=== PATIENT | male | born 1980 | race Caucasian/White ===

== ENCOUNTER → 2018-01-22 15:55 | Outpatient (CLI) | payer MEDICAID, SELFPAY ==
--- NOTE | 2018-01-22 15:58 | XR_ITS ---
EXAM: XR lumbar spine min 4V HISTORY: ITS.REASON: Back Pain ORDERING PHYSICIAN: Kendall Egan MD PATIENT AGE: 37 years COMPARISON: FINDINGS: Normal alignment. No fracture or dislocation. No lytic or blastic change. No significant degenerative change. The disc spaces are preserved. Calcification in pre-vertebral region at L4-L5 consistent with with calcification within the aorta IMPRESSION: 1. Negative lumbar spine. 2. Atheromatous calcification of the aorta
--- NOTE | 2018-01-22 15:58 | XR_ITS ---
EXAM: XR thoracic spine 3V HISTORY: ITS.REASON: Midback Pain FINDINGS: Normal alignment. No fracture or dislocation. No lytic or blastic change. No significant degenerative change. The disc spaces are preserved. Minimal thoracic curvature convex right IMPRESSION: No acute finding, minimal dextroscoliosis of the thoracic spine
== END ==
PROVIDERS: PCP Emergency Medicine; Visit Provider Emergency Medicine
DX: M54.9 Dorsalgia, unspecified (principal); M54.6 Pain in thoracic spine; M54.5 Low back pain
CPT/HCPCS: 72072; 72110

== ENCOUNTER → 2018-05-14 08:19 | Outpatient (CLI) | payer MEDICAID, SELFPAY ==
[2018-05-14 08:32] LABS: Basophils % 0.3 % (0.1-2.0); Eosinophils # 0.2 K/mm3 (0.0-0.4); Eosinophils % 2.4 % (0.1-12.0); Hematocrit 47.9 % (42.0-52.0); Lymphocytes # 2.2 K/mm3 (0.7-4.5); Lymphocytes % 24.5 K/mm3 (10-50); Mean Corpuscular HGB Conc 33.4 g/dL (31.8-35.4); Mean Corpuscular Volume 89.8 fl (80-94); Mean Platelet Volume 7.7 fl (7.4-10.4); Monocytes # 0.4 K/mm3 (0.1-1.0); Monocytes % 3.9 % (1.7-9.3); Neutrophils # 6.2 K/mm3 (1.8-7.8); Neutrophils % 68.9 % (37.0-80.0); Platelet Count 282 K/mm3 (142-424); Red Blood Count 5.34 M/mm3 (4.60-6.20); Red Cell Distribution Width 13.7 % (11.5-17.5)
[2018-05-14 10:26] LABS: Alanine Aminotransferase 24 U/L (12-78); Albumin Level 4.1 gm/dL (3.4-5.0); Albumin/Globulin Ratio 1.3 (1.1-1.8); Alkaline Phosphatase 91 U/L (46-116); Anion Gap 9.3 mEq/L (5-15); Aspartate Amino Transferase 7 U/L (15-37); Bilirubin,Total 0.3 mg/dL (0.2-1.0); Blood Urea Nitrogen 15 mg/dL (7-18); Carbon Dioxide 29 mmol/L (21.0-32.0); Chloride 107 mmol/L (98-107); Chol/HDL Ratio 3.9 (1-3.5); Cholesterol 221 mg/dL (140-200); Creatinine,Serum 0.91 mg/dL (0.70-1.30); Estimated Glomerular Filt Rate 93 ml/min (>60); GFR (African American) 113 ML/MIN (>60); Globulin 3.2 gm/dl (1.3-3.2); Glucose 96 mg/dL (74-106); HDL Cholesterol 56 mg/dL (27-67); LDL Cholesterol 146 mg/dL (0-130); Potassium 4.3 mmoL/L (3.5-5.1); Sodium 141 mmol/L (136-145); T4 (Thyroxine) 6.6 ug/dl (4.7-13.3); Thyroid Stimulating Hormone 0.23 uIU/ml (0.358-3.740); Total Protein,Serum 7.3 gm/dL (6.4-8.2); Triglycerides 94 mg/dL (30-200); VLDL Cholesterol 19 mg/dL (0-40)
== END ==
PROVIDERS: Visit Provider Physician Assistant
DX: Z13.0 Encounter for screening for diseases of the blood and blood-forming organs and certain disorders involving the immune mechanism (principal); Z13.29 Encounter for screening for other suspected endocrine disorder; I70.0 Atherosclerosis of aorta; R53.83 Other fatigue
CPT/HCPCS: 36415; 80053; 80061; 84436; 84443; 85025

== ENCOUNTER → 2018-11-13 14:51 | Outpatient (CLI) | payer MEDICAID, SELFPAY ==
--- NOTE | 2018-11-13 14:56 | XR_ITS ---
EXAM: XR lumbar spine min 4V HISTORY: ITS.REASON: back pain ORDERING PHYSICIAN: Irene Sarabia PATIENT AGE: 37 years COMPARISON: None FINDINGS: Normal alignment. No fracture or dislocation. No lytic or blastic change. No significant degenerative change. The disc spaces are preserved. IMPRESSION: Negative lumbar spine
== END ==
PROVIDERS: PCP Emergency Medicine; Visit Provider Nurse Practitioner Family
DX: M54.9 Dorsalgia, unspecified (principal)
CPT/HCPCS: 72110

== ENCOUNTER → 2019-09-10 13:42 | Outpatient (CLI) | payer OTHER, SELFPAY ==
[2019-09-10 15:05] LABS: Alanine Aminotransferase 21 U/L (12-78); Albumin Level 4.4 gm/dL (3.4-5.0); Alkaline Phosphatase 74 U/L (46-116); Aspartate Amino Transferase 14 U/L (15-37); Bilirubin,Direct 0.1 mg/dL (0.0-0.2); Bilirubin,Indirect 0.6 mg/dL (0.0-0.9); Bilirubin,Total 0.7 mg/dL (0.2-1.0); Lipase 156 u/L (73-393); Total Protein,Serum 7.6 gm/dL (6.4-8.2)
== END ==
PROVIDERS: Visit Provider Emergency Medicine
DX: R10.11 Right upper quadrant pain (principal)
CPT/HCPCS: 80076; 83690

== ENCOUNTER → 2019-09-16 08:06 | Outpatient (CLI) | payer OTHER, SELFPAY ==
--- NOTE | 2019-09-16 08:11 | US_ITS ---
PROCEDURE: US GALLBLADDER CLINICAL INDICATION: RUQ abdominal pain COMPARISON: No exams were available for comparison FINDINGS: Pancreas: Unremarkable/Not well seen Liver: Unremarkable. There is appropriate direction of blood flow within a non dilated portal vein. Right kidney: Unremarkable appearing. No hydronephrosis. Gallbladder: No gallstones, pericholecystic fluid, or biliary dilatation. Gallbladder wall is slightly thickened at 3 mm. IMPRESSION: Mildly thickened gallbladder wall otherwise negative right quadrant ultrasound Dictated by: Maximino Perez MD 09/16/2019 14:44 Electronically signed by Maximino Perez MD in [place] 09/16/2019 14:44
== END ==
PROVIDERS: PCP Emergency Medicine; Visit Provider Emergency Medicine
DX: R10.11 Right upper quadrant pain (principal)
CPT/HCPCS: 76705

== ENCOUNTER → 2019-09-27 10:32 | Outpatient (CLI) | payer OTHER, SELFPAY ==
--- NOTE | 2019-09-27 10:32 | NM_ITS ---
PROCEDURE: NM HEPATOBILIARY W PHARM CLINICAL INDICATION: Stomach pain Right upper quadrant pain, thickened gallbladder on ultrasound COMPARISON: No exams were available for comparison TECHNIQUE: DOSE: 8.1 mCi technetium Choletec and 1.9 mcg of CCK FINDINGS: Homogeneous activity is present within the hepatic parenchyma. Activity is present in the gallbladder by 15 minutes. Activity is present in the small bowel by 45 minutes. The gallbladder ejection fraction is calculated to be 98 percent. There was mild pain reported with CCK infusion. IMPRESSION: No evidence of common or cystic duct obstruction. Normal gallbladder ejection fraction Dictated by: Maximino Perez MD 09/28/2019 17:17 Electronically signed by Maximino Perez MD in [place] 09/28/2019 17:17
--- NOTE | 2019-09-27 10:46 | HMH.ITSHM ---
Current Home Medications as stated by this patient Jorge Luis Luevano or territory service representative. []DYCYCLOMINE
== END ==
PROVIDERS: PCP Emergency Medicine; Visit Provider Emergency Medicine
DX: R93.2 Abnormal findings on diagnostic imaging of liver and biliary tract (principal)
CPT/HCPCS: 78227; A9537; J2805

== ENCOUNTER → 2019-10-03 11:02 | Outpatient (CLI) | payer OTHER, SELFPAY ==
[2019-10-03 11:31] LABS: Basophils % 0.6 % (0.1-2.0); Eosinophils # 0.1 K/mm3 (0.0-0.4); Eosinophils % 1.1 % (0.1-12.0); Hematocrit 46.4 % (42.0-52.0); Hemoglobin 15.2 g/dL (14.1-18.0); Lymphocytes # 1.7 K/mm3 (0.7-4.5); Lymphocytes % 27.7 % (10-50); Mean Corpuscular HGB Conc 32.7 g/dL (31.8-35.4); Mean Corpuscular Hemoglobin 30.2 pg (27.0-31.2); Mean Corpuscular Volume 92.4 fl (80-94); Mean Platelet Volume 8.1 fl (7.4-10.4); Monocytes # 0.4 K/mm3 (0.1-1.0); Monocytes % 5.7 % (1.7-9.3); Neutrophils # 4.1 K/mm3 (1.8-7.8); Neutrophils % 64.9 % (37.0-80.0); Platelet Count 260 K/mm3 (142-424); Red Blood Count 5.03 M/mm3 (4.60-6.20); Red Cell Distribution Width 13.2 % (11.5-17.5); White Blood Count 6.3 K/mm3 (4.8-10.8)
[2019-10-03 14:56] LABS: Alanine Aminotransferase 17 U/L (12-78); Albumin Level 4.1 gm/dL (3.4-5.0); Albumin/Globulin Ratio 1.4 (1.1-1.8); Alkaline Phosphatase 70 U/L (46-116); Anion Gap 13.4 mEq/L (5-15); Bilirubin,Total 0.6 mg/dL (0.2-1.0); Blood Urea Nitrogen 8 mg/dL (7-18); Calcium 8.8 mg/dL (8.5-10.1); Carbon Dioxide 29 mmol/L (21.0-32.0); Chloride 104 mmol/L (98-107); Creatinine,Serum 0.79 mg/dL (0.70-1.30); Estimated Glomerular Filt Rate 109 ml/min (>60); GFR (African American) 132 ML/MIN (>60); Globulin 2.9 gm/dl (1.3-3.2); Glucose 97 mg/dL (74-106); Sodium 142 mmol/L (136-145)
[2019-10-03 14:58] LABS: Aspartate Amino Transferase 9 U/L (15-37); Potassium 4.4 mmoL/L (3.5-5.1)
== END ==
PROVIDERS: Visit Provider Surgery
DX: K80.20 Calculus of gallbladder without cholecystitis without obstruction (principal)
CPT/HCPCS: 36415; 80053; 85025

== ENCOUNTER 2020-06-24 14:52 | Emergency (ER) | payer OTHER, SELFPAY ==
[2020-06-24 15:30] VITALS: BP 116/90; PULSE 89; RESP 20; TEMP 36.6; O2SAT 99; BMI 30.7
--- NOTE | 2020-06-24 15:33 | HMH.EDUTC ---
[facility] [place] Disposition Clinical Impression: Exposure to COVID-19 virus Upper respiratory infection Qualifiers: URI type: unspecified URI Qualified Code(s): J06.9 - Acute upper respiratory infection, unspecified Low back pain Qualifiers: Chronicity: acute Back pain laterality: bilateral Sciatica presence: with sciatica Sciatica laterality: bilateral sciatica Qualified Code(s): M54.42 - Lumbago with sciatica, left side Disposition: Home, Self-Care Condition on Discharge: Good Instructions: DI for Low Back Pain Additional Instructions: Go home and rest. No heavy lifting. No twisting for the next 2 days. Take the oral medications as directed. The muscle relaxer (robaxin) will make you drowsy, so don't drive or operate heavy machinery after taking it. Follow up with your regular doctor. GO TO THE ER FOR ANY WORSENING SYMPTOMS OR CONCERN, ESPECIALLY BOWEL OR BLADDER ISSUES, SADDLE AREA NUMBNESS, FEVER, ETC Prescriptions: Ibuprofen [Ibuprofen 600mg Tablet] 600 mg PO Q6HP PRN #30 tab PRN Reason: Mild Pain Transmission Status: Received by [id number] Methocarbamol [Robaxin 500mg Tab] 500 mg PO BIDP PRN #30 tab PRN Reason: Muscle Spasm Transmission Status: Received by [id number] Referrals: Kendall Egan MD [Primary Care Provider] - Forms: Work/School Release Time of Disposition: 15:44 Medical Decision Making - Medical Records Medical records reviewed: No: I reviewed the patient's medical records. - Anant Inquiry Pt receiving controlled substance: No Vital Signs: 06/24/20 15:30 06/24/20 15:42 Temperature 97.9 F 97.9 F Temperature Source Oral Pulse Rate 89 Pulse Rate [Left] 89 Respiratory Rate 20 20 Blood Pressure 116/90 Blood Pressure [Right Arm] 116/90 Blood Pressure Mean [Right Arm] 98 Blood Pressure Source [Right Arm] Automatic Cuff Blood Pressure Position [Right Arm] Sitting 02 Sat by Pulse Oximetry 99 Oxygen Delivery Method Room Air Orders (Tests/Meds): ORDERS Category Date Time Status Covid-19 Nasal PCR Sendout [facility] 06/24/20 15:18 Received [facility] [place] HPI - General Stated complaint: cough,renaldo Time Seen by Provider: 06/24/20 15:34 - History of Present Illness Provider Complaint: He reports that he was sick with cough and congestion several days ago. He had to take a day off work. Now he is feeling better, but he needs to be checked for covid. He has also been having low back pain. This has been an ongoing problem and he denies that it has got any worsen pain or issues, but his back has been hurting. - Related Data Previous Rx's Medication Instructions Recorded dicyclomine 10 mg capsule 10 mg PO Q6H PRN 30 Days #120 cap 09/24/19 Ibuprofen [Ibuprofen 600mg 600 mg PO Q6HP PRN #30 tab 06/24/20 Tablet] Methocarbamol [Robaxin 500mg Tab] 500 mg PO BIDP PRN #30 tab 06/24/20 Allergies Allergy/AdvReac Type Severity Reaction Status Date / Time codeine [CODEINE] AdvReac Mild NA-NAUSEA/V Verified 10/29/19 09:53 OMITING meloxicam [From [facility]] AdvReac Mild NA-NAUSEA/V Verified 10/29/19 09:53 OMITING H History - Hepatitis A Screen Attestation statement:: This patient has been screened for Hepatitis A risk factors. I have reviewed the patient's past medical history: Yes Medical History: Reports:: Chronic Obstructive Pulmonary Disease (COPD), Gastroesophageal Reflux Disease(GERD), Hyperlipidemia Denies:: Cancer, Diabetes Mellitus Type 1, Diabetes Mellitus Type 2, Internal Pacemaker, MRSA, Seizures Other Medical History: Denies: Blood Transfusion Reaction Laterality Cases: Right: Carpal Tunnel Release, Bilateral: Tonsillectomy Other Surgeries: Yes: Cholecystectomy, Other. No: Pacemaker Amputation: No Fractures: Yes Comment: rt rotator cuff - Social History Smoking Status: Current every day smoker Tobacco Type: smokeless tobacco # Packs/Day (cigarettes): 1 Alcohol Intake: never Alcohol Intake William
[2020-06-24 15:42] VITALS: BP 116/90; PULSE 89; RESP 20; TEMP 36.6; O2SAT 99
[2020-06-26 20:24] LABS: Covid-19 Nasal PCR Sendout Lex Not Detected
== END 2020-06-24 15:59 | disposition home or self-care (01) ==
PROVIDERS: Emergency Provider Nurse Practitioner Family; PCP Emergency Medicine
DX: Z20.828 Contact with and (suspected) exposure to other viral communicable diseases (principal); J06.9 Acute upper respiratory infection, unspecified; M54.42 Lumbago with sciatica, left side; J44.9 Chronic obstructive pulmonary disease, unspecified; K21.9 Gastro-esophageal reflux disease without esophagitis; E78.5 Hyperlipidemia, unspecified; F17.210 Nicotine dependence, cigarettes, uncomplicated; Z90.49 Acquired absence of other specified parts of digestive tract; Z90.09 Acquired absence of other part of head and neck; Z79.899 Other long term (current) drug therapy
CPT/HCPCS: 99201; U0004

== ENCOUNTER → 2020-07-02 15:57 | Outpatient (CLI) | payer OTHER, SELFPAY ==
--- NOTE | 2020-07-02 16:02 | XR_ITS ---
PROCEDURE: XR LUMBAR SPINE 2-3V CLINICAL INDICATION: back pain COMPARISON: CR [id number] XR lumbar spine min 4V from 11/13/2018 FINDINGS: No fracture or dislocation. No lytic or blastic change. There is normal mineralization. The joint spaces are well-preserved. No significant degenerative/arthritic changes. No erosive changes evident. Other findings:There is minimal lumbar curvature convex left. Surgical clips right upper quadrant IMPRESSION: Centrally negative lumbar spine Dictated by: Maximino Perez MD 07/02/2020 16:33 Maximino Perez MD in [place] 07/02/2020 16:33
== END ==
PROVIDERS: PCP Emergency Medicine; Visit Provider Nurse Practitioner Family
DX: M54.5 Low back pain (principal)
CPT/HCPCS: 72100

== ENCOUNTER → 2020-08-07 13:14 | Outpatient (CLI) | payer OTHER, SELFPAY | PROVIDERS: PCP Emergency Medicine; Visit Provider Nurse Practitioner Family | DX: R06.2 Wheezing (principal) | CPT/HCPCS: 94060; 94618; 94727; 94729 ==

== ENCOUNTER 2020-09-21 14:00 | Outpatient (RCR) | payer OTHER, SELFPAY ==
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
== END 2020-09-21 14:05 | disposition home or self-care (01) ==
LOC: PT 14:00
PROVIDERS: PCP Emergency Medicine; Visit Provider Nurse Practitioner Family
DX: M54.5 Low back pain (principal)
CPT/HCPCS: 97010; 97014; 97110; 97163; G0283

== ENCOUNTER → 2020-10-08 12:44 | Outpatient (CLI) | payer OTHER, SELFPAY ==
--- NOTE | 2020-10-08 12:44 | MR_ITS ---
PROCEDURE: MR LUMBAR SPINE WO CON (3D MR myelogram image set included/with volume rendering) Referring Doctor: Brian Larry Patient Age:39Y CLINICAL INDICATION: BLE Numbness/tingling Low back pain right leg pain tingling and numbness COMPARISON: No exams were available for comparison TECHNIQUE: Standard multiplanar multiecho sequences are performed without contrast. 3-D MIP and myelographic images are also rendered and reviewed-77 CPT FINDINGS: The lumbar vertebral bodies are intact but no compression fractures nor lesions but good alignment the. Conus ends appropriately at T12/L1 level L5/S1. Mild loss of disc hydration and scant disc space narrowing with minimal central disc bulge a small focus of high signal and posterior disc margin noted. Nonspecific but can reflect a tiny annular fissure; (this minor feature noted on T2 weighted images sagittal image 8, axial 7) facets appear intact with only some mild the the minor prominence L5/S1.; No pars defects evident L4/5 disc intact. Mild facet hypertrophy arthropathy with scant fluid at facets. Features slight narrow modest neural foramen on the the left more so than right. L3/4. Disc intact. The of trace facet hypertrophy/arthropathy. With scant fluid facets but modest AP dimension of the neural foramen bilaterally the. L2/3. Disc intact with only scant foraminal disc prominence. Neural foramen patent with only slight narrowing due to mainly to the modest congenital AP dimension the neural foramen L1/2 disc intact. Unremarkable as is T12/L1.. 3D MR myelogram image set shows no prominent findings. There may be some very subtle lateral the tapering of the spinal canal at L3/4 but this unimpressive.. Exiting nerve root sleeves bilaterally appears satisfactory with attention to the right IMPRESSION: 1..Minor observations. No prominent findings; No disc herniation; no spinal stenosis 2.. Mild, very minimal degenerative changes lumbar spine. No prominent findings to account for right-sided leg symptoms. Minor observations as below: . L5/S1 mild degenerative disc changes with central disc bulge . Minimal facet arthropathy hypertrophy L4/5 and-L3/4 . Note relative modest congenital AP dimension neural foramen bilaterally, with slight additional narrowing the bilateral foramen at the L3/4 and L4/5 due to the facet hypertrophy-of questionable significance.. Dictated by: Nate Carmona MD 10/09/2020 11:15 Nate Carmona MD in [place] 10/09/2020 11:17
== END ==
PROVIDERS: PCP Emergency Medicine; Visit Provider Nurse Practitioner Family
DX: M54.5 Low back pain (principal)
CPT/HCPCS: 72148; 76376

== ENCOUNTER → 2020-11-06 14:25 | Outpatient (CLI) | payer OTHER, SELFPAY | PROVIDERS: PCP Emergency Medicine; Visit Provider Nurse Practitioner Family | DX: Z20.822 Contact with and (suspected) exposure to COVID-19 (principal) | CPT/HCPCS: U0003 ==

== ENCOUNTER → 2020-11-12 13:11 | Outpatient (POV) | payer OTHER, SELFPAY ==
[2020-11-12 13:34] VITALS: BP 138/88; PULSE 85; RESP 18; TEMP 36.8; O2SAT 98; BMI 34.8
--- NOTE | 2020-11-12 13:55 | HMH.PMCON ---
Assessment and Plan (1) Facet arthropathy Status: Chronic Category: Medical Code(s): M47.819 - Spondylosis without myelopathy or radiculopathy, site unspecified (2) Degenerative disc disease Status: Chronic Qualifiers: Spinal region: lumbar Qualified Code(s): M51.36 - Other intervertebral disc degeneration, lumbar region Category: Medical (3) Back pain Status: Chronic Category: Medical Code(s): M54.9 - Dorsalgia, unspecified - Assessment and plan all Dx Assessment and Plan for all problems:: We will schedule the patient for a bilateral medial branch block L4-L5 [id number]. I will follow-up with him after this he may be a candidate for a neurotomy. Patient's been instructed to call the office if he has any issues prior to his next appointment. Patient does not take any blood thinners. He is also can look into therapy for his depression. Dr. Nixon has reviewed this note and agrees with this plan of care. This note was dictated using voice recognition software and may contain errors or omissions HPI - Data of Consult Consult date: 11/12/20 Requesting Physician: Tracey Alston APRN Primary Care Provider: Brian Larry APRN - Consult Narrative Reason for consult: Back pain History of present illness: Mr. Luevano is a 39 year old male who presents today for consultation regards to his low back pain. Patient has had back pain for several years getting worse over time. Patient does not have radiation of his pain is very focal he has difficulty with twisting motions that are required for his job. Patient rates his pain a 5 out of 10. Patient states that lying down and heat decreases pain. Patient is completed physical therapy with no relief. He is tried and failed medication management. He has had over conservative therapy recently. Patient has also been unable to control pain with activity modification. Patient is interested in other therapies. He does [place] depression. We had a discussion in regards to getting treatment and the connection between depression and pain. CC: Tracey Alston APRN [facility] History I have reviewed the patient's past medical history: Yes Medical History: Reports:: Chronic Obstructive Pulmonary Disease (COPD), Gastroesophageal Reflux Disease(GERD), Hyperlipidemia Denies:: Cancer, Diabetes Mellitus Type 1, Diabetes Mellitus Type 2, Internal Pacemaker, MRSA, Seizures *Have you ever received a pneumonia vaccine?: No *Have you received a flu vaccine this season?: Yes Other Medical History: Reports: Arthritis. Denies: Blood Transfusion Reaction Laterality Cases: Right: Carpal Tunnel Release, Bilateral: Tonsillectomy Other Surgeries: Yes: Cholecystectomy, Other. No: Pacemaker Amputation: No Fractures: Yes - *Social History Smoking Status: Current every day smoker Tobacco Type: cigarettes # Packs/Day (cigarettes): 1 Alcohol Intake: never Alcohol Intake Frequency:: holidays/special occasions only Substance Use Type: marijuana Last Used Substance: unknown *Occupational Status:: employed Housing: apartment Household Members: none *Travel in the last 8 weeks: None Family Hx:: Unable to obtain Review of Systems - Review of Systems ROS General: no recent weight change, no fever, no sleep disturbances Respiratory: no cough, no shortness of air, no recurring pulmonary infections Cardiovascular/Peripheral Vascular: No chest pain, No palpitations, no edema, no shortness of breath. Gastrointestinal: no new onset incontinence, normal bowel movements reported Genitourinary: no new onset incontinence Musculoskeletal: Back pain Psychiatric: normal mood/ affect Neurological: [denies new onset weakness in extremities], [denies new onset balance issues] Meds Home Medications Medication Instructions Recorded Confirmed Type cyclobenzaprine 5 mg tablet 5 mg PO HS #30 tab 08/06/20 11/06/20 Rx acetaminophen 300 mg-codeine 30 mg 1 tab PO BID PRN #6
== END ==
PROVIDERS: PCP Nurse Practitioner Family; Visit Provider Clinical Nurse Specialist Family Health
DX: M47.819 Spondylosis without myelopathy or radiculopathy, site unspecified (principal); M51.36 Other intervertebral disc degeneration, lumbar region
CPT/HCPCS: 99202; G0463

== ENCOUNTER 2020-12-04 08:49 | Day surgery (SDC) | payer OTHER, SELFPAY ==
[2020-12-04 09:10] VITALS: BP 118/88; PULSE 61; RESP 18; TEMP 36.1; O2SAT 96; BMI 34.8
[2020-12-04 09:39] VITALS: BP 135/85; PULSE 85; RESP 18; O2SAT 98
[2020-12-04 09:41] VITALS: BP 139/87; PULSE 85; RESP 18; O2SAT 98
--- NOTE | 2020-12-04 09:47 | HMH.PMPROC ---
- Procedure Date: 12/04/20 Time: 09:47 Anesthesiologist:: Aris Nixon MD Complications:: None Pre-procedure Diagnosis:: Degenerative disc disease of lumbar spine with lumbar spondylosis and lumbar facet arthropathy Post-procedure Diagnosis:: Same Indications for Procedure:: This patient is a pleasant 40-year-old white male who we are treating for low back pain with lumbar facet arthropathy and lumbar spondylosis. He has increasing pain with extension and twisting. He has tenderness over the facet joints of L4-5 and L5-S1. We will do bilateral lumbar medial branch blocks/facet joint injections today of L4-5 and L5-S1 Under fluoroscopy. Procedure Details:: Lumbar medial branch block Informed consent was obtained and the risks and benefits of the procedure was explained to the patient. The back was prepped using ChloraPrep. The skin and subcutaneous tissues were anesthetized using lidocaine. I placed 22-gauge spinal needles into the facet joint/medial branches of L4-L5 and L5-S1 bilaterally. Needle placement was confirmed with dye. After this we injected 3 mL bupivacaine 0.25% into each facet joint/medial branch of L4-L5 and L5-S1 bilaterally. The patient tolerated the procedure well with no complications. Plan and Disposition:: We will follow-up with him in 2 weeks. Will reevaluate symptoms at that time. If these are successful we will seek approval for radiofrequency ablation to these levels of L4-5 and L5-S1 bilaterally.
[2020-12-04 09:56] VITALS: BP 137/95; PULSE 58; RESP 18; O2SAT 96
== END 2020-12-04 09:57 | disposition home or self-care (01) ==
LOC: SC.PAINP 08:51
PROVIDERS: PCP Emergency Medicine; Visit Provider Anesthesiology
DX: M51.36 Other intervertebral disc degeneration, lumbar region (principal); M47.896 Other spondylosis, lumbar region; M54.06 Panniculitis affecting regions of neck and back, lumbar region; E78.5 Hyperlipidemia, unspecified; J44.9 Chronic obstructive pulmonary disease, unspecified; Z88.8 Allergy status to other drugs, medicaments and biological substances; Z79.899 Other long term (current) drug therapy
CPT/HCPCS: 64493; 64494; Q9966

== ENCOUNTER → 2020-12-17 14:52 | Outpatient (POV) | payer OTHER, SELFPAY ==
[2020-12-17 14:59] VITALS: BP 142/84; PULSE 54; RESP 18; TEMP 36.3; O2SAT 98; BMI 42.9
--- NOTE | 2020-12-17 15:55 | HMH.PAINSOAP ---
[facility] Pain Management SOAP Note Subjective:: Patient is a pleasant 40-year-old white male who presents today for follow-up after medial branch block. Patient got no relief from his medial branch block. Patient I discussed epidural steroid injection. He is agreeable we will move forward with this. We also discussed neurosurgical consultation. We will move forward with this as well. Patient rates pain a 7 out of 10 stating it is mostly in his low back. Patient has difficulty with standing. ROS General: no recent weight change, no fever, no sleep disturbances Respiratory: no cough, no shortness of air, no recurring pulmonary infections Cardiovascular/Peripheral Vascular: No chest pain, No palpitations, no edema, no shortness of breath. Gastrointestinal: no new onset incontinence, normal bowel movements reported Genitourinary: no new onset incontinence Musculoskeletal: Back pain Psychiatric: normal mood/ affect Neurological: [denies new onset weakness in extremities], [denies new onset balance issues] Objective:: Physical Exam General: Alert and oriented x3, no acute distress, pleasant and cooperative, [on room air] Lungs: Resps E/U, Symmetrical chest expansion, Eyes: PERRL Musculoskeletal: Flexion and extension of lumbar spine somewhat guarded secondary to pain, deep tendon reflexes normal, strength in upper and lower extremities [5/5], [abnormal gait noted] Neurological: speech clear, 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 He has been instructed to call the office if he has any issues prior to his next appointment. Dr. Nixon has reviewed this note and agrees with this plan of care. This note was dictated using voice recognition software and may contain errors or omissions [facility] History I have reviewed the patient's past medical history: Yes Medical History: Reports:: Chronic Obstructive Pulmonary Disease (COPD), Gastroesophageal Reflux Disease(GERD), Hyperlipidemia Denies:: Cancer, Diabetes Mellitus Type 1, Diabetes Mellitus Type 2, Internal Pacemaker, MRSA, Seizures *Have you ever received a pneumonia vaccine?: No *Have you received a flu vaccine this season?: No Other Medical History: Reports: Arthritis. Denies: Blood Transfusion Reaction Laterality Cases: Right: Carpal Tunnel Release, Bilateral: Tonsillectomy Other Surgeries: Yes: Cholecystectomy, Other. No: Pacemaker Amputation: No Fractures: Yes - *Social History Smoking Status: Current every day smoker Tobacco Type: cigarettes # Packs/Day (cigarettes): 1 Alcohol Intake: never Alcohol Intake Frequency:: holidays/special occasions only Substance Use Type: marijuana *Occupational Status:: unemployed Housing: house Household Members: none *Travel in the last 8 weeks: None Family Hx:: Unable to obtain
== END ==
PROVIDERS: PCP Emergency Medicine; Visit Provider Clinical Nurse Specialist Family Health
DX: M51.36 Other intervertebral disc degeneration, lumbar region (principal); M54.06 Panniculitis affecting regions of neck and back, lumbar region; M47.816 Spondylosis without myelopathy or radiculopathy, lumbar region
CPT/HCPCS: 99212; G0463

== ENCOUNTER 2020-12-25 10:57 | Day surgery (SDC) | payer OTHER, SELFPAY ==
[2020-12-25 11:11] VITALS: BP 119/71; PULSE 62; RESP 18; TEMP 36.6; O2SAT 98; BMI 34.8
[2020-12-25 12:11] VITALS: BP 132/89; PULSE 85; RESP 18; O2SAT 98
--- NOTE | 2020-12-25 12:12 | HMH.PMPROC ---
- Procedure Date: 12/25/20 Time: 12:12 Anesthesiologist:: Aris Nixon MD Complications:: None Pre-procedure Diagnosis:: Degenerative disc disease of lumbar spine with lumbar radiculopathy symptoms Post-procedure Diagnosis:: Same Indications for Procedure:: This patient is a pleasant 40-year-old white male who we are treating for low back pain with lumbar radiculopathy symptoms. He has had previous medial branch blocks which have not given him much relief of his pain symptoms. We will do a lumbar epidural steroid injection today to see if this gives him better relief of his symptoms. Procedure Details:: Lumbar epidural steroid injection under fluoroscopy Informed consent was obtained and the risk and benefits of the procedure was explained to the patient. The patient was taken to the procedure room. The patient was placed prone on the procedure table. The patient was prepped and draped in sterile fashion. C-arm fluoroscopy was used to view the lumbar spine. Skin and subcutaneous tissues were anesthetized using lidocaine. I placed an 18-gauge epidural needle and advanced into the L4-L5 interspace using fluoroscopic guidance and [id number] to air. After confirmation of needle placement in the epidural space with dye I injected 2 mL of lidocaine 1.5% with Depo-Medrol 80 mg. Patient tolerated the procedure well with no complications. Plan and Disposition:: We will follow-up with him in 2 weeks. Will reevaluate symptoms at that time. If he does not get any relief with these injections and we we will pursue neurosurgical evaluation.
[2020-12-25 12:24] VITALS: BP 114/90; PULSE 59; RESP 18; O2SAT 98
== END 2020-12-25 12:25 | disposition home or self-care (01) ==
PROVIDERS: PCP Emergency Medicine; Visit Provider Anesthesiology
DX: M51.16 Intervertebral disc disorders with radiculopathy, lumbar region (principal); E78.5 Hyperlipidemia, unspecified; M54.00 Panniculitis affecting regions of neck and back, site unspecified; Z88.6 Allergy status to analgesic agent; Z88.8 Allergy status to other drugs, medicaments and biological substances; J44.9 Chronic obstructive pulmonary disease, unspecified; Z87.39 Personal history of other diseases of the musculoskeletal system and connective tissue
CPT/HCPCS: 62323; J1040; Q9966

== ENCOUNTER → 2021-01-13 17:16 | Outpatient (CLI) | payer OTHER, SELFPAY ==
[2021-01-13 17:54] LABS: Amphetamine/Metha Screen,Urine Negative ng/ml (<1000); Barbiturates Screen,Urine Negative ng/ml (<200)
[2021-01-13 17:56] LABS: Benzodiazepines Screen,Urine Negative ng/ml (<200)
[2021-01-13 17:57] LABS: Cannabinoid Screen,Urine Positive ng/ml (<50); Cocaine Screen,Urine Negative ng/ml (<300)
[2021-01-13 17:58] LABS: Methadone Screen,Urine Negative ng/ml (<300)
[2021-01-13 17:59] LABS: Phencyclidine Screen,Urine Negative ng/ml (<25)
[2021-01-13 18:06] LABS: Opiate Screen,Urine Positive ng/ml (<300)
== END ==
PROVIDERS: Visit Provider Emergency Medicine
DX: Z79.899 Other long term (current) drug therapy (principal)
CPT/HCPCS: 80305

== ENCOUNTER → 2021-01-21 11:37 | Outpatient (POV) | payer OTHER, SELFPAY ==
[2021-01-21 11:53] VITALS: BP 133/78; PULSE 85; RESP 18; TEMP 36.8; O2SAT 98; BMI 34.5
--- NOTE | 2021-01-21 12:19 | P.CONS_ITS ---
[facility] Pain Management SOAP Note Subjective:: Patient is a pleasant 40-year-old white male who presents today for follow-up after lumbar epidural steroid injection. He did not get any relief from this. He did not get any relief from his previous medial branch blocks. He is awaiting a neurosurgical consultation. He has had a recent MRI. He rates his pain today 7 out of 10. ROS General: no recent weight change, no fever, no sleep disturbances Respiratory: no cough, no shortness of air, no recurring pulmonary infections Cardiovascular/Peripheral Vascular: No chest pain, No palpitations, no edema, no shortness of breath. Gastrointestinal: no new onset incontinence, normal bowel movements reported Genitourinary: no new onset incontinence Musculoskeletal: Back pain, leg pain Psychiatric: normal mood/ affect Neurological: [denies new onset weakness in extremities], [denies new onset balance issues] Objective:: Physical Exam General: Alert and oriented x3, no acute distress, pleasant and cooperative, [on room air] Lungs: Resps E/U, Symmetrical chest expansion, Eyes: PERRL Musculoskeletal: Flexion and extension of lumbar spine somewhat guarded secondary to pain, deep tendon reflexes normal, strength in upper and lower extremities [5/5], [abnormal gait noted] Neurological: speech clear, 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 He is to go to his neurosurgical consultation. He has been instructed to call the office if he has any issues. Dr. Nixon has reviewed this note and agrees with this plan of care. This note was dictated using voice recognition software and may contain errors or omissions [facility] History I have reviewed the patient's past medical history: Yes Medical History: Reports:: Chronic Obstructive Pulmonary Disease (COPD), Gastroesophageal Reflux Disease(GERD), Hyperlipidemia Denies:: Cancer, Diabetes Mellitus Type 1, Diabetes Mellitus Type 2, Internal Pacemaker, MRSA, Seizures *Have you ever received a pneumonia vaccine?: Yes *Have you received a flu vaccine this season?: Yes Other Medical History: Reports: Arthritis. Denies: Blood Transfusion Reaction Laterality Cases: Right: Carpal Tunnel Release, Bilateral: Tonsillectomy Other Surgeries: Yes: Cholecystectomy, Other (rotator cuff repair). No: Pacemaker Amputation: No Fractures: Yes - *Social History Smoking Status: Current every day smoker Tobacco Type: cigarettes # Packs/Day (cigarettes): 1 Alcohol Intake: never Alcohol Intake Frequency:: holidays/special occasions only Substance Use Type: marijuana *Occupational Status:: other Housing: house Household Members: none *Travel in the last 8 weeks: None Family Hx:: Unable to obtain
== END ==
PROVIDERS: PCP Emergency Medicine; Visit Provider Clinical Nurse Specialist Family Health
DX: M51.16 Intervertebral disc disorders with radiculopathy, lumbar region (principal)
CPT/HCPCS: 99212; G0463

== ENCOUNTER → 2021-03-15 17:50 | Outpatient (CLI) | payer OTHER, SELFPAY ==
[2021-03-15 19:01] LABS: Amphetamine/Metha Screen,Urine Negative ng/ml (<1000)
[2021-03-15 19:03] LABS: Barbiturates Screen,Urine Negative ng/ml (<200); Benzodiazepines Screen,Urine Negative ng/ml (<200)
[2021-03-15 19:04] LABS: Cannabinoid Screen,Urine Positive ng/ml (<50)
[2021-03-15 19:05] LABS: Cocaine Screen,Urine Negative ng/ml (<300); Methadone Screen,Urine Negative ng/ml (<300)
[2021-03-15 19:06] LABS: Opiate Screen,Urine Positive ng/ml (<300); Phencyclidine Screen,Urine Negative ng/ml (<25)
== END ==
PROVIDERS: Visit Provider Emergency Medicine
DX: Z79.899 Other long term (current) drug therapy (principal)
CPT/HCPCS: 80305

== ENCOUNTER → 2021-04-14 16:44 | Outpatient (CLI) | payer OTHER, SELFPAY ==
[2021-04-14 17:35] LABS: Barbiturates Screen,Urine Negative ng/ml (<200)
[2021-04-14 17:36] LABS: Benzodiazepines Screen,Urine Negative ng/ml (<200)
[2021-04-14 17:37] LABS: Amphetamine/Metha Screen,Urine Negative ng/ml (<1000); Methadone Screen,Urine Negative ng/ml (<300)
[2021-04-14 17:38] LABS: Cannabinoid Screen,Urine Positive ng/ml (<50)
[2021-04-14 17:39] LABS: Cocaine Screen,Urine Negative ng/ml (<300); Opiate Screen,Urine Positive ng/ml (<300)
[2021-04-14 17:40] LABS: Phencyclidine Screen,Urine Negative ng/ml (<25)
== END ==
PROVIDERS: Visit Provider Nurse Practitioner Family
DX: Z51.81 Encounter for therapeutic drug level monitoring (principal); M51.36 Other intervertebral disc degeneration, lumbar region; Z79.891 Long term (current) use of opiate analgesic
CPT/HCPCS: 80305

== ENCOUNTER → 2021-04-29 14:08 | Outpatient (POV) | payer OTHER, SELFPAY ==
[2021-04-29 14:34] VITALS: BP 122/95; PULSE 87; RESP 18; O2SAT 98; BMI 34.2
--- NOTE | 2021-04-29 16:26 | HMH.PAINSOAP ---
[facility] Pain Management SOAP Note Subjective:: Patient is a 40-year-old white male who presents today for follow-up. He was seen in the clinic on 01/21/2021. He did have a lumbar epidural steroid injection. Prior to that he had a medial branch block/facet joint injections. Patient says that he got about 70% relief for 2 to 3 days with the medial branch blocks previously. He was referred to neurosurgery per Desiree Alston APRN after his last lumbar epidural steroid injection. He is having pain in his low back area with worsening pain with bending forward and turning and twisting at waist. After seeing neurosurgery, they did feel the patient is not a neurosurgical candidate and told him that an RFA would be the best option for him at this time. Patient is back at the clinic for repeat medial branch block/facet injections and for possible RFA. He has had #1 medial branch block diagnostic injection. He has tried and failed conservative therapies of physical therapy for more than 6 weeks along with continued home stretching and anti-inflammatories. He did not get any significant relief. He is also used ice and heat therapies. Review of Systems General: No recent weight changes, no fever, no sleep disturbances Respiratory: No cough, no shortness of air, no recurring pulmonary infections Cardiovascular/peripheral vascular: No chest pain, no palpitations, no edema, no shortness of breath Gastrointestinal: No new onset incontinence, normal bowel movements reported Genitourinary: No new onset incontinence Musculoskeletal: Low back pain worse with turning and twisting at waist, worse with leaning forward Psychiatric: Normal mood/affect Neurological: [Denies weakness in extremities], [denies balance issues] Objective:: Physical exam General: Alert and oriented x3, no acute distress, pleasant and cooperative, [on room air] Lungs: Respirations even and unlabored, symmetrical chest expansion Eyes: PERRL Musculoskeletal: Flexion and extension of [] lumbar spine somewhat guarded secondary to pain, deep tendon reflexes normal, strength in upper and lower extremities [5/5], [abnormal gait noted], positive Kemps test Neurological: Speech clear, 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 He has also had one medial branch block/facet joint injection and did get short-term relief with this injection. He has tried other conservative therapies and physical therapy along with continued home stretching and anti-inflammatories with minimal relief. He was referred to neurosurgery who has referred the patient back to us and has suggested the patient undergo RFA. He has had #1 medial branch block diagnostic. We will schedule him for #2 medial branch block/facet joint injection diagnostic. If he does get relief as of at least 60%, we will send the patient for an RFA to these areas. We will schedule him for medial branch block/facet joint injection at L3-L4 L4 on L5 bilaterally. We will follow-up with him after this injection for reevaluation of symptoms. Risks and benefits of the procedure have been explained to the patient. Patient would like to proceed with the procedure. Possible side effects of corticosteroids have been discussed with the patient. Patient has been instructed to contact the clinic with any concerns before the next appointment. Dr. Nixon has reviewed this note and agrees with this plan of care. This note was dictated using voice recognition software and make contain errors or omissions. [facility] History I have reviewed the patient's past medical history: Yes Medical History: Reports:: Chronic Obstructive Pulmonary Disease (COPD), Gastroesophageal Reflux Disease(GERD), Hyperlipidemia Denies:: Cancer, Diabetes Mellitus Type 1, Diabetes Mellitus Type 2, Internal
== END ==
PROVIDERS: Visit Provider Clinical Nurse Specialist Family Health
DX: M51.36 Other intervertebral disc degeneration, lumbar region (principal); M47.816 Spondylosis without myelopathy or radiculopathy, lumbar region; M54.06 Panniculitis affecting regions of neck and back, lumbar region
CPT/HCPCS: 99212; G0463

== ENCOUNTER → 2021-05-12 17:55 | Outpatient (CLI) | payer OTHER, SELFPAY ==
[2021-05-12 19:30] LABS: Amphetamine/Metha Screen,Urine Negative ng/ml (<1000)
[2021-05-12 19:32] LABS: Barbiturates Screen,Urine Negative ng/ml (<200); Benzodiazepines Screen,Urine Negative ng/ml (<200)
[2021-05-12 19:33] LABS: Cannabinoid Screen,Urine Positive ng/ml (<50)
[2021-05-12 19:34] LABS: Cocaine Screen,Urine Negative ng/ml (<300); Methadone Screen,Urine Negative ng/ml (<300)
[2021-05-12 19:35] LABS: Opiate Screen,Urine Positive ng/ml (<300)
[2021-05-12 19:36] LABS: Phencyclidine Screen,Urine Negative ng/ml (<25)
== END ==
PROVIDERS: Visit Provider Emergency Medicine
DX: Z79.899 Other long term (current) drug therapy (principal)
CPT/HCPCS: 80305

== ENCOUNTER 2021-05-14 13:38 | Day surgery (SDC) | payer OTHER, SELFPAY ==
[2021-05-14 13:51] VITALS: BP 157/61; PULSE 63; RESP 18; TEMP 36.5; O2SAT 98; BMI 33.6
[2021-05-14 14:50] VITALS: BP 144/100; PULSE 63; RESP 18; O2SAT 97
[2021-05-14 14:51] VITALS: BP 123/70; PULSE 59; RESP 18; O2SAT 98
--- NOTE | 2021-05-14 14:56 | HMH.PMPROC ---
- Procedure Date: 05/14/21 Time: 14:56 Anesthesiologist:: Giovanna Fitzgerald MD Complications:: None Pre-procedure Diagnosis:: Degenerative disc disease of the lumbar spine, lumbar facet arthropathy, spondylosis of the lumbar spine Post-procedure Diagnosis:: Same Indications for Procedure:: Very pleasant 40-year-old white male who presents today with chronic low back pain to the above diagnosis. He has tried and failed conservative treatment including oral pain medication and home stretching program for greater than 6 weeks. Of note, he previously has undergone lumbar epidural steroid injection but reports better pain relief after undergoing the lumbar medial branch block/facet joint injections without steroid which he reports 70% pain relief for 2 to 3 days. He states the pain is worse with bending forward and twisting movements. He has been evaluated with neurosurgery amended against any acute surgical intervention at that time. The plan for today is for the to undergo a repeat diagnostic lumbar facet joint/medial branch block injection under fluoroscopy at L3-4 and L4-L5 bilaterally #2. Procedure Details:: Lumbar medial branch block Informed consent was obtained and the risks and benefits of the procedure was explained to the patient. The back was prepped using ChloraPrep. The skin and subcutaneous tissues were anesthetized using lidocaine. I placed 22-gauge spinal needles into the facet joint/medial branches of L3-L4, L4-L5 bilaterally. Needle placement was confirmed with dye. After this we injected 5 mL bupivacaine 0.25% into each facet joint/medial branch of L3-L4, L4-L5 bilaterally. The patient tolerated the procedure well with no complications. Plan and Disposition:: We will follow-up with this patient in 2 weeks. Will reevaluate pain symptoms at that time.
[2021-05-14 15:10] VITALS: BP 142/91; PULSE 54; RESP 20; O2SAT 98
== END 2021-05-14 15:11 | disposition home or self-care (01) ==
LOC: SC.PAINP 13:39
PROVIDERS: PCP Emergency Medicine; Visit Provider Anesthesiology Pain Medicine
DX: M51.36 Other intervertebral disc degeneration, lumbar region (principal); M47.816 Spondylosis without myelopathy or radiculopathy, lumbar region; M54.06 Panniculitis affecting regions of neck and back, lumbar region; I10 Essential (primary) hypertension; J44.9 Chronic obstructive pulmonary disease, unspecified; K21.9 Gastro-esophageal reflux disease without esophagitis; M19.90 Unspecified osteoarthritis, unspecified site; F41.9 Anxiety disorder, unspecified; F32.9 Major depressive disorder, single episode, unspecified
CPT/HCPCS: 64493; 64494; Q9966

== ENCOUNTER → 2021-07-08 14:25 | Outpatient (POV) | payer OTHER, SELFPAY ==
[2021-07-08 14:33] VITALS: BP 168/90; PULSE 75; RESP 18; O2SAT 98; BMI 33.2
--- NOTE | 2021-07-08 14:45 | HMH.PAINSOAP ---
[facility] Pain Management SOAP Note Subjective:: Patient is a pleasant 40-year-old white male who presents today for follow-up after medial branch block/facet joint injection L3-L4 L4-L5 bilaterally, second injection. Patient reports that he got 70 to 75% relief for about 4 to 5 days. The patient's pain did return. He did report to have significant bruising to the areas, so he did have some soreness at the injection sites. He does say, however, he was much more functional and active after the injections. Patient's pain has returned. He does want to proceed with an RFA. The patient has tried failed conservative therapies of physical therapy for more than 6 weeks along with continued home stretching. He is on [place] and gabapentin prescribed by Dr. Egan. The patient does rate his pain a 6 out of 10 today. Review of Systems General: No recent weight changes, no fever, no sleep disturbances Respiratory: No cough, no shortness of air, no recurring pulmonary infections Cardiovascular/peripheral vascular: No chest pain, no palpitations, no edema, no shortness of breath Gastrointestinal: No new onset incontinence, normal bowel movements reported Genitourinary: No new onset incontinence Musculoskeletal: Low back pain worse with bending forward and with turning or twisting at waist Psychiatric: [Normal mood/affect] Neurological: [Denies weakness in extremities], [denies balance issues] Objective:: Physical exam General: Alert and oriented x3, no acute distress, pleasant and cooperative, [on room air] Lungs: Respirations even and unlabored, symmetrical chest expansion Eyes: PERRL Musculoskeletal: Flexion and extension of lumbar [spine] somewhat guarded secondary to pain, strength in upper and lower extremities [5/5], [antalgic gait noted], positive Kemps test Neurological: Speech clear, [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 He did get more than 70% relief with 2 medial branch block/facet joint injections. He has tried and failed conservative therapies of physical therapy for more than 6 weeks along with home stretching and anti-inflammatories. He is not on anticoagulation therapy. We will see the patient back in the clinic after his RFA for reevaluation of symptoms. The patient has been instructed to contact clinic if he has any concerns for his next appointment. Risks and benefits of the procedure have been explained to the patient. Patient would like to proceed with the procedure. Patient has been instructed to contact the clinic with any concerns before the next appointment. Dr. Nixon has reviewed this note and agrees with this plan of care. This note was dictated using voice recognition software and make contain errors or omissions. [facility] History I have reviewed the patient's past medical history: Yes Medical History: Reports:: Chronic Obstructive Pulmonary Disease (COPD), Gastroesophageal Reflux Disease(GERD), Hyperlipidemia Denies:: Cancer, Diabetes Mellitus Type 1, Diabetes Mellitus Type 2, Internal Pacemaker, MRSA, Seizures *Have you ever received a pneumonia vaccine?: No *Have you received a flu vaccine this season?: Yes Other Medical History: Reports: Arthritis. Denies: Blood Transfusion Reaction Laterality Cases: Right: Carpal Tunnel Release, Bilateral: Tonsillectomy Other Surgeries: Yes: Cholecystectomy, Other (rotator cuff repair). No: Pacemaker Amputation: No Fractures: Yes - *Social History Smoking Status: Former smoker Tobacco Type: cigarettes # Packs/Day (cigarettes): 1 Alcohol Intake: never Alcohol Intake Frequency:: holidays/special occasions only Substance Use Type: marijuana *Occupational Status:: employed Housing: house Household Members: other *Travel in the last 8 weeks: None Family Hx:: Unable to obtain
== END ==
PROVIDERS: Visit Provider Clinical Nurse Specialist Family Health
DX: M51.36 Other intervertebral disc degeneration, lumbar region (principal); M47.816 Spondylosis without myelopathy or radiculopathy, lumbar region; M54.06 Panniculitis affecting regions of neck and back, lumbar region
CPT/HCPCS: 99212; G0463

== ENCOUNTER → 2021-07-12 18:10 | Outpatient (CLI) | payer OTHER, SELFPAY ==
[2021-07-12 19:34] LABS: Amphetamine/Metha Screen,Urine Negative ng/ml (<1000)
[2021-07-12 19:35] LABS: Barbiturates Screen,Urine Negative ng/ml (<200); Benzodiazepines Screen,Urine Negative ng/ml (<200)
[2021-07-12 19:36] LABS: Cannabinoid Screen,Urine Positive ng/ml (<50)
[2021-07-12 19:37] LABS: Cocaine Screen,Urine Negative ng/ml (<300); Methadone Screen,Urine Negative ng/ml (<300)
[2021-07-12 19:39] LABS: Opiate Screen,Urine Negative ng/ml (<300)
[2021-07-12 19:40] LABS: Phencyclidine Screen,Urine Negative ng/ml (<25)
== END ==
PROVIDERS: Visit Provider Emergency Medicine
DX: Z79.899 Other long term (current) drug therapy (principal)
CPT/HCPCS: 80305

== ENCOUNTER 2021-07-30 09:35 | Day surgery (SDC) | payer OTHER, SELFPAY ==
[2021-07-30 09:47] VITALS: BP 125/80; PULSE 61; RESP 18; TEMP 36.6; O2SAT 98; BMI 33.5
[2021-07-30 09:59] VITALS: BP 120/57; PULSE 69; RESP 20; O2SAT 96
[2021-07-30 10:00] VITALS: BP 120/57; PULSE 69; RESP 20; O2SAT 95
--- NOTE | 2021-07-30 10:24 | P.PCN_ITS ---
- Procedure Date: 07/30/21 Time: 10:24 Anesthesiologist:: Aris Nixon MD Complications:: None Pre-procedure Diagnosis:: Degenerative disc disease of lumbar spine with lumbar spondylosis and lumbar facet arthropathy Post-procedure Diagnosis:: Same Indications for Procedure:: Patient is a pleasant 40-year-old white male who we are treating for low back pain with lumbar spondylosis and lumbar facet arthropathy. He has done very well with 2 rounds of medial branch blocks of L3-L4 and L4-L5 bilaterally. He was 80 to 90% better for a short period of time. He presents for RF ablation to these levels of L3-L4 and L4-L5 bilaterally today. Procedure Details:: Lumbar RFA informed consent was obtained and the risk and benefits of the procedure was explained to the patient. Patient was placed prone on the procedure table. The patient was prepped and draped in sterile fashion. C-arm fluoroscopy was used to view the lumbar spine. The skin and subcutaneous tissues were anesthetized using lidocaine. I placed 20-gauge RF needles into the facet joints of L3-L4 and L4-L5 bilaterally. We underwent sensory stimulation. There is good sensory stimulation at 0.8 V. We underwent motor stimulation. There is no motor stimulation at 2 V. We then anesthetized these levels with lidocaine and Depo- Medrol. I used a total of 80 mg Depo-Medrol for both levels and both sides. I then burned both levels of L3-L4 and L4 bilaterally, each 1, for 4 minutes at 80 ?C. Patient tolerated the procedure well with no complication. Plan and Disposition:: We will follow-up with him in 2 weeks. Will reevaluate symptoms at that time.
[2021-07-30 10:45] VITALS: BP 117/86; PULSE 66; RESP 20; O2SAT 97
== END 2021-07-30 10:45 | disposition home or self-care (01) ==
LOC: SC.PAINP 09:36
PROVIDERS: PCP Emergency Medicine; Visit Provider Anesthesiology
DX: M51.36 Other intervertebral disc degeneration, lumbar region (principal); M47.896 Other spondylosis, lumbar region; M54.06 Panniculitis affecting regions of neck and back, lumbar region; E78.5 Hyperlipidemia, unspecified; J44.9 Chronic obstructive pulmonary disease, unspecified; K21.9 Gastro-esophageal reflux disease without esophagitis; M19.90 Unspecified osteoarthritis, unspecified site; F41.9 Anxiety disorder, unspecified
CPT/HCPCS: 64635; 64636; J1040

== ENCOUNTER → 2021-08-17 10:53 | Outpatient (POV) | payer OTHER, SELFPAY ==
[2021-08-17 11:07] VITALS: BP 162/96; PULSE 98; RESP 18; O2SAT 96; BMI 33.5
--- NOTE | 2021-08-17 12:06 | HMH.PAINSOAP ---
[facility] Pain Management SOAP Note Subjective:: Patient is a 40-year-old white male who presents today for follow-up after RFA to L3-L4 L4-L5 bilaterally. Patient's pain is a 4 out of 10 today. He says he got approximately 2 weeks of relief. Unfortunately the pain is starting to return. He does report immediately following the RFA he did have to return to work that day. He was unable to rest following the RFA. He is concerned that this may have contributed to decreased relief in pain. The patient says the pain is made worse with bending and turning at waist. He is also managed with oral medications by his primary care provider. Patient has had epidural steroid injections which did not give him any significant relief. He is not interested in any type of implanted device at this time. Review of Systems General: No recent weight changes, no fever, no sleep disturbances Respiratory: No cough, no shortness of air, no recurring pulmonary infections Cardiovascular/peripheral vascular: No chest pain, no palpitations, no edema, no shortness of breath Gastrointestinal: No new onset incontinence, normal bowel movements reported Genitourinary: No new onset incontinence Musculoskeletal: Low back pain made worse with bending forward and turning and twisting at waist Psychiatric: [Normal mood/affect] Neurological: [Denies weakness in extremities], [denies balance issues] Objective:: Physical exam General: Alert and oriented x3, no acute distress, pleasant and cooperative Lungs: Respirations even and unlabored, symmetrical chest expansion Eyes: PERRL Musculoskeletal: Flexion and extension of lumbar [spine] somewhat guarded secondary to pain, [antalgic gait noted], positive Kemps test Neurological: Speech clear, no gross sensory deficit Assessment:: Degenerative disc disease lumbar spine with lumbar spondylosis and lumbar facet arthropathy Plan:: Patient and I discussed options today. He has tried epidural steroid injections with minimal relief. The RFA gave him short-term relief. We did discuss possible spinal cord stimulation though he is not interested at this time. We also discussed starting diclofenac 75 mg 1 tablet p.o. twice daily. He is not taking any type of anti-inflammatory. Patient would like to try this along with his oral medications prescribed by his primary care provider. We will give the patient diclofenac with 2 refills and plan to follow-up with him in October for possible repeat medial branch block/facet injections. If he gets significant relief at that time with the injections we may be able to attempt RFA of the areas once again. Patient is in agreement. Risks and benefits of the medication have been explained in detail to the patient. If side effects do present with the medication, patient has been advised to stop the medication immediately and call the clinic. The patient has been advised to consult with his/her primary care provider and pharmacist regarding drug-drug interaction of medications currently prescribed. Patient has been instructed to contact the clinic with any concerns before the next appointment. Dr. Nixon has reviewed this note and agrees with this plan of care. This note was dictated using voice recognition software and make contain errors or omissions. [facility] History I have reviewed the patient's past medical history: Yes Medical History: Reports:: Chronic Obstructive Pulmonary Disease (COPD), Gastroesophageal Reflux Disease(GERD), Hyperlipidemia Denies:: Cancer, Diabetes Mellitus Type 1, Diabetes Mellitus Type 2, Internal Pacemaker, MRSA, Seizures *Have you ever received a pneumonia vaccine?: No *Have you received a flu vaccine this season?: Yes Other Medical History: Reports: Arthritis. Denies: Blood Transfusion Reaction Laterality Cases: Right: Carpal Tunnel Release, Bilateral: Tonsillectomy Other Surgeries: Yes: Cholecystectomy, Other (rotator cuff repair). No: Pacemaker Amputation:
== END ==
PROVIDERS: Visit Provider Clinical Nurse Specialist Family Health
DX: M51.36 Other intervertebral disc degeneration, lumbar region (principal); M47.816 Spondylosis without myelopathy or radiculopathy, lumbar region; M54.06 Panniculitis affecting regions of neck and back, lumbar region
CPT/HCPCS: 99212; G0463

== ENCOUNTER → 2021-09-28 14:12 | Outpatient (CLI) | payer OTHER, SELFPAY ==
[2021-09-28 15:12] LABS: Amphetamine/Metha Screen,Urine Negative ng/ml (<1000); Barbiturates Screen,Urine Negative ng/ml (<200)
[2021-09-28 15:13] LABS: Benzodiazepines Screen,Urine Negative ng/ml (<200); Cannabinoid Screen,Urine Positive ng/ml (<50)
[2021-09-28 15:14] LABS: Cocaine Screen,Urine Negative ng/ml (<300)
[2021-09-28 15:15] LABS: Methadone Screen,Urine Negative ng/ml (<300); Opiate Screen,Urine Positive ng/ml (<300)
[2021-09-28 15:16] LABS: Phencyclidine Screen,Urine Negative ng/ml (<25)
== END ==
PROVIDERS: Visit Provider Emergency Medicine
DX: M54.9 Dorsalgia, unspecified (principal)
CPT/HCPCS: 80305

== ENCOUNTER 2021-10-10 19:04 | Emergency (ER) | payer OTHER, SELFPAY ==
[2021-10-10 20:03] VITALS: BP 131/82; PULSE 70; RESP 14; TEMP 36.8; O2SAT 97; BMI 32.6
--- NOTE | 2021-10-10 20:09 | XR_ITS ---
PROCEDURE INFORMATION: Exam: XR Left Hand Exam date and time: 10/10/2021 8:09 PM Age: 40 years old Clinical indication: Injury or trauma; Fall; Blunt trauma (contusions or hematomas); Hand; Left TECHNIQUE: Imaging protocol: XR Left hand. Views: 3 or more views. COMPARISON: No relevant prior studies available. FINDINGS: Bones/joints: Joint spaces are normal. No fracture or malalignment. Soft tissues: Normal. IMPRESSION: No fracture or malalignment.
--- NOTE | 2021-10-10 20:09 | XR_ITS ---
PROCEDURE INFORMATION: Exam: XR Left Shoulder Exam date and time: 10/10/2021 8:09 PM Age: 40 years old Clinical indication: Injury or trauma; Fall; Blunt trauma (contusions or hematomas); Shoulder; Left TECHNIQUE: Imaging protocol: XR Left shoulder. Views: 2 or more views. COMPARISON: No relevant prior studies available. FINDINGS: Bones/joints: Joint spaces are normal. No fracture or malalignment. Lungs: Small granuloma in the left upper lobe. Soft tissues: Unremarkable. IMPRESSION: No fracture or malalignment.
--- NOTE | 2021-10-10 20:09 | XR_ITS ---
PROCEDURE INFORMATION: Exam: XR Left Elbow Exam date and time: 10/10/2021 8:09 PM Age: 40 years old Clinical indication: Injury or trauma; Fall; Blunt trauma (contusions or hematomas); Elbow; Left; Injury date: 10/10/2021 TECHNIQUE: Imaging protocol: XR Left elbow. Views: 3 or more views. COMPARISON: CR XR WRIST LT MIN 3V 10/10/2021 8:14 PM FINDINGS: Bones/joints: Joint spaces are normal. No fracture or malalignment. Soft tissues: Normal. IMPRESSION: No fracture or malalignment.
--- NOTE | 2021-10-10 20:09 | XR_ITS ---
PROCEDURE INFORMATION: Exam: XR Left Wrist Exam date and time: 10/10/2021 8:09 PM Age: 40 years old Clinical indication: Injury or trauma; Fall; Blunt trauma (contusions or hematomas); Wrist; Left; Injury date: 10/10/2021 TECHNIQUE: Imaging protocol: XR Left wrist. Views: 3 or more views. COMPARISON: CR XR HAND LT MIN 3V 10/10/2021 8:12 PM FINDINGS: Bones/joints: Joint spaces are normal. No fracture or malalignment. Soft tissues: Normal. IMPRESSION: No fracture or malalignment.
--- NOTE | 2021-10-10 21:19 | HMH.EDUTC ---
[facility] [place] Clinical Impression: Numbness and tingling in left hand Disposition: Home, Self-Care Condition on Discharge: Good Instructions: DI for Hand Injury Additional Instructions: Rest the extremity, Elevate the extremity as tolerated while you are resting. Take the steroids that we prescribed. Follow up with Dr. Urbina (orthopedics). I put in a referral but you need to call his office and schedule an appointment. Follow up with your regular doctor. GO TO THE ER FOR ANY WORSENING SYMPTOMS Prescriptions: methylPREDNISolone [Medrol] 4 mg PO DIRECTED 6 Days #21 packet Transmission Status: Pending to [facility] #[id number] Referrals: Kendall Egan MD [Primary Care Provider] - Forms: Work/School Release Time of Disposition: 21:35 Medical Decision Making - Medical Records Medical records reviewed: No: I reviewed the patient's medical records. - Anant Inquiry Pt receiving controlled substance: No Vital Signs: 10/10/21 20:03 Temperature 98.2 F Temperature Source Oral Pulse Rate [Left] 70 Respiratory Rate 14 Blood Pressure [Right Arm] 131/82 Blood Pressure Mean [Right Arm] 98 02 Sat by Pulse Oximetry 97 Orders (Tests/Meds): ORDERS Category Date Time Status Hand XR left minimum 3 views [XR hand LT min 3V] Stat Exams 10/10/21 20:09 Taken XR elbow LT min 3V Stat Exams 10/10/21 20:09 Taken XR shoulder LT min 2V Stat Exams 10/10/21 20:09 Taken XR wrist LT min 3V Stat Exams 10/10/21 20:09 Taken [facility] [place] - General Stated complaint: FELL AT WORK 09/26 INJURED L ARM HAND Time Seen by Provider: 10/10/21 21:19 Mode of Arrival: Ambulatory Source of Information: Patient Limitations: No Limitations Description of Symptoms (Recalled from Triage Doc. by RN): pt states he fell at work on 09/25, hitting his L shoulder on the corner of a metal table. pt has had L shoulder pain since. pt is now c/o L hand tingling x4 days. HEENT Symptoms (Recalled from RN notes): No Resp Symptoms (Recalled from RN notes): No Skin Symptoms (Recalled from RN notes): No MS Symptoms (Recalled from RN notes): Yes Functional Status (Recalled from RN notes): wnl - History of Present Illness Provider Complaint: He states that he fell a couple of weeks ago and came down on his shoulder. Afterwards he thought he was ok other than having some bruises. But, 4 days ago, he began having intermittent left hand numbness. He has a history of carpal tunnel in that hand, but he does not feel like this is the same feeling. He is worried that he broke something when he fell and it is causing this now. - Related Data Home Medications Medication Instructions Recorded Confirmed Fluoxetine HCl [Prozac] 20 mg PO DAILY 05/14/21 09/28/21 Previous Rx's Medication Instructions Recorded gabapentin 300 mg capsule 300 mg PO Q8H #90 cap 09/28/21 hydrocodone 7.5 mg-acetaminophen 1 tab PO BID PRN #60 tab 09/28/21 325 mg tablet methylPREDNISolone [Medrol] 4 mg PO DIRECTED 6 Days #21 10/10/21 packet Allergies Allergy/AdvReac Type Severity Reaction Status Date / Time codeine [CODEINE] AdvReac Mild NA-NAUSEA/V Verified 09/28/21 09:55 OMITING meloxicam [From [facility]OBIC] AdvReac Mild NA-NAUSEA/V Verified 09/28/21 09:55 OMITING - Worker's Comp Is this a Worker's Comp case?: No [facility] History - Hepatitis A Screen Drug use history?: No High risk sexual behaviors?: No History of sexually transmitted infection?: No Currently employed?: No Childcare worker?: No Do you have indoor plumbing?: Yes Do you have electricity?: Yes Attestation statement:: This patient has been screened for Hepatitis A risk factors. I have reviewed the patient's past medical history: Yes Medical History: Reports:: Chronic Obstructive Pulmonary Disease (COPD), Gastroesophageal Reflux Disease(GERD), Hyperlipidemia Denies:: Cancer, Diabetes Mellitus Type 1, Diabetes Mellitus Type 2, Internal Pacemaker, MRSA, Seizures
[2021-10-10 21:36] VITALS: BP 131/82; PULSE 70; RESP 14; TEMP 36.8
== END 2021-10-10 21:41 | disposition home or self-care (01) ==
PROVIDERS: Emergency Provider Nurse Practitioner Family; PCP Emergency Medicine
DX: R20.0 Anesthesia of skin (principal); M79.642 Pain in left hand; K21.9 Gastro-esophageal reflux disease without esophagitis; E78.5 Hyperlipidemia, unspecified; J44.9 Chronic obstructive pulmonary disease, unspecified; Z87.891 Personal history of nicotine dependence
CPT/HCPCS: 73030; 73080; 73110; 73130; 99202; G0463

== ENCOUNTER → 2021-11-08 08:21 | Outpatient (POV) | payer OTHER, SELFPAY ==
[2021-11-08 08:30] VITALS: BP 143/82; PULSE 64; RESP 18; O2SAT 95; BMI 18.6
--- NOTE | 2021-11-08 08:36 | P.CONS_ITS ---
[facility] Pain Management SOAP Note Subjective:: Patient is a 40-year-old white male who presents today for follow-up. He was seen in the clinic on 08/17/2021. He had an RFA L3-L4 L4-L5. Patient says he only got 2 weeks of relief at 7 out of 10. Today, he says that the pain has returned. He does work 12-hour shifts does do prolonged standing. The patient does have neck pain with radiation into the left right hand with first 3 fingers numb and tingling. He does report to have fallen recently at work slipping on a piece of plastic striking his left shoulder and arm. He has tried epidurals in the past and got 0 relief. Review of Systems General: No recent weight changes, no fever, no sleep disturbances Respiratory: No cough, no shortness of air, no recurring pulmonary infections Cardiovascular/peripheral vascular: No chest pain, no palpitations, no edema, no shortness of breath Gastrointestinal: No new onset incontinence, normal bowel movements reported Genitourinary: No new onset incontinence Musculoskeletal: Low back pain made worse with bending and extension at waist Psychiatric: [Normal mood/affect] Neurological: [Denies weakness in extremities], [denies balance issues] Objective:: Physical exam General: Alert and oriented x3, no acute distress, pleasant and cooperative Lungs: Respirations even and unlabored, symmetrical chest expansion Eyes: PERRL Musculoskeletal: Flexion and extension of lumbar [spine] somewhat guarded secondary to pain, [antalgic gait noted] Neurological: Speech clear, no gross sensory deficit Assessment:: Degenerative disc disease lumbar spine with lumbar spondylosis lumbar facet arthropathy Plan:: Patient would like to follow-up with me in January so that we can reschedule his RFA at L3-L4 L4-L5. We will plan to see him back at that time and scheduled the procedure. He does not want to proceed with medial branch blocks at this time. Patient has been instructed to contact the clinic with any concerns before the next appointment. Dr. Nixon has reviewed this note and agrees with this plan of care. This note was dictated using voice recognition software and make contain errors or omissions. [facility] History Medical History: Reports:: Chronic Obstructive Pulmonary Disease (COPD), Gastroesophageal Reflux Disease(GERD), Hyperlipidemia Denies:: Cancer, Diabetes Mellitus Type 1, Diabetes Mellitus Type 2, Internal Pacemaker, MRSA, Seizures *Have you ever received a pneumonia vaccine?: No *Have you received a flu vaccine this season?: No Other Medical History: Reports: Arthritis. Denies: Blood Transfusion Reaction Laterality Cases: Right: Carpal Tunnel Release, Bilateral: Tonsillectomy Other Surgeries: Yes: Cholecystectomy, Other (rotator cuff repair). No: Pacemaker Amputation: No Fractures: Yes - *Social History Smoking Status: Former smoker Tobacco Type: cigarettes # Packs/Day (cigarettes): 1 Alcohol Intake: never Alcohol Intake Frequency:: holidays/special occasions only Substance Use Type: marijuana *Occupational Status:: employed Housing: house Household Members: other *Travel in the last 8 weeks: None Family Hx:: Unable to obtain, No significant family history
== END ==
PROVIDERS: Visit Provider Clinical Nurse Specialist Family Health
DX: M51.16 Intervertebral disc disorders with radiculopathy, lumbar region (principal); M47.816 Spondylosis without myelopathy or radiculopathy, lumbar region; M54.06 Panniculitis affecting regions of neck and back, lumbar region
CPT/HCPCS: 99212; G0463

== ENCOUNTER → 2021-11-26 13:55 | Outpatient (CLI) | payer OTHER, SELFPAY | PROVIDERS: PCP Emergency Medicine; Visit Provider Nurse Practitioner | DX: U07.1 COVID-19 (principal) | CPT/HCPCS: C9803; U0003; U0005 ==

== ENCOUNTER → 2021-11-29 10:00 | Outpatient (CLI) | payer OTHER, SELFPAY | PROVIDERS: PCP Emergency Medicine; Visit Provider Nurse Practitioner | DX: Z20.822 Contact with and (suspected) exposure to COVID-19 (principal) | CPT/HCPCS: C9803; U0003; U0005 ==

== ENCOUNTER → 2022-01-26 10:10 | Outpatient (CLI) | payer OTHER, SELFPAY ==
[2022-01-26 14:47] LABS: Amphetamine/Metha Screen,Urine Negative ng/ml (<1000)
[2022-01-26 14:49] LABS: Barbiturates Screen,Urine Negative ng/ml (<200)
[2022-01-26 14:50] LABS: Benzodiazepines Screen,Urine Negative ng/ml (<200); Cannabinoid Screen,Urine Positive ng/ml (<50)
[2022-01-26 14:51] LABS: Cocaine Screen,Urine Negative ng/ml (<300)
[2022-01-26 14:52] LABS: Methadone Screen,Urine Negative ng/ml (<300)
[2022-01-26 14:53] LABS: Opiate Screen,Urine Negative ng/ml (<300)
[2022-01-26 14:54] LABS: Phencyclidine Screen,Urine Negative ng/ml (<25)
== END ==
PROVIDERS: PCP Emergency Medicine; Visit Provider Emergency Medicine
DX: M54.9 Dorsalgia, unspecified (principal); G89.29 Other chronic pain
CPT/HCPCS: 80305

== ENCOUNTER → 2022-02-10 13:57 | Outpatient (POV) | payer OTHER, SELFPAY ==
--- NOTE | 2022-02-10 14:49 | P.CONS_ITS ---
[facility] Pain Management SOAP Note Subjective:: Patient is a pleasant 42-year-old male who presents today for follow-up. Patient is currently being treated for degenerative disc disease of lumbar spine with lumbar radiculopathy symptoms, facet arthropathy, lumbar spondylosis. Patient is currently being managed with injective therapy and ablation. Patient has had 2 successful medial branch block injections at L3-L4 and L4-L5. He had an RFA bilaterally at L3-L4 and L4-L5 in August 2021. Patient had significant relief from this ablation. He presents today wanting a repeat RFA. He rates his pain today as 4 out of 10. [facility] #[id number] with an active morphine equivalent of 23. Patient is also prescribed gabapentin 300 mg 3 times a day and [place] 7.5 mg 3 times a day by an outside clinic. Review of Systems: General: No recent weight changes, no fever, no sleep disturbances Respiratory: No cough, no shortness of air, no recurring pulmonary infections Cardiovascular/peripheral vascular: No chest pain, no palpitations, no edema, no shortness of breath Gastrointestinal: No new onset incontinence, normal bowel movements reported Genitourinary: No new onset incontinence Musculoskeletal: Low back pain Psychiatric: [Normal mood/affect] Neurological: [Denies weakness in extremities], [denies balance issues] Objective:: Physical Exam: General: Alert and oriented x3, no acute distress, pleasant and cooperative Lungs: Respirations even and unlabored, symmetrical chest expansion Eyes: PERRL Musculoskeletal: Flexion and extension of [lumbar] [spine] somewhat guarded secondary to pain, [antalgic gait noted]; positive Kinney Neurological: Speech clear, no gross sensory deficit Assessment:: Degenerative disc disease of lumbar spine with lumbar radiculopathy symptoms, facet arthropathy, lumbar spondylosis Plan:: Patient has had 2 successful medial branch block injections at L3-L4 and L4-L5. Patient had his lumbar RFA at bilateral L3-L4 and L4-L5 in August 2021 that provided significant relief. Patient presents today wanting to schedule another RFA. We will schedule the patient for a lumbar RFA bilaterally at L3-L4 and L4- L5. Risk and benefits of this procedure been discussed with the patient. Patient would like to proceed with the procedure. Follow-up after the ablation. Patient has been instructed to contact the clinic with any concerns before the next appointment. Dr. Nixon has reviewed this note and agrees with this plan of care. This note was dictated using voice recognition software and make contain errors or omissions. [facility] History Medical History: Reports:: Chronic Obstructive Pulmonary Disease (COPD), Gastroesophageal Reflux Disease(GERD), Hyperlipidemia Denies:: Cancer, Diabetes Mellitus Type 1, Diabetes Mellitus Type 2, Internal Pacemaker, MRSA, Seizures *Have you ever received a pneumonia vaccine?: No *Have you received a flu vaccine this season?: No Other Medical History: Reports: Arthritis. Denies: Blood Transfusion Reaction Laterality Cases: Right: Carpal Tunnel Release, Bilateral: Tonsillectomy Other Surgeries: Yes: Cholecystectomy, Other (rotator cuff repair). No: Pacemaker Amputation: No Fractures: Yes - *Social History Smoking Status: Former smoker Tobacco Type: cigarettes # Packs/Day (cigarettes): 1 Alcohol Intake: never Alcohol Intake Frequency:: holidays/special occasions only Substance Use Type: marijuana *Occupational Status:: employed Housing: house Household Members: other *Travel in the last 8 weeks: Inside the [place] Family Hx:: No significant family history
[2022-02-10 14:57] VITALS: BP 137/81; PULSE 83; RESP 18; TEMP 36.8; O2SAT 97; BMI 30.4
== END ==
PROVIDERS: Visit Provider Student in an Organized Health Care Education/Training Program
DX: M51.16 Intervertebral disc disorders with radiculopathy, lumbar region (principal); M47.896 Other spondylosis, lumbar region; M54.06 Panniculitis affecting regions of neck and back, lumbar region
CPT/HCPCS: 99212; G0463

== ENCOUNTER 2022-03-18 13:13 | Day surgery (SDC) | payer OTHER, SELFPAY ==
[2022-03-18 13:44] VITALS: BP 119/72; PULSE 57; RESP 20; TEMP 36.4; O2SAT 95; BMI 30.4
[2022-03-18 13:52] VITALS: BP 111/63; PULSE 54; RESP 18; O2SAT 99
[2022-03-18 13:53] VITALS: BP 117/76; PULSE 57; RESP 18; O2SAT 99
--- NOTE | 2022-03-18 14:09 | HMH.PMPROC ---
- Procedure Date: 03/18/22 Time: 14:09 Anesthesiologist:: Erik Hackett CRNA Complications:: None Pre-procedure Diagnosis:: Disc disease lumbar spine multilevels. Lumbar radiculopathy symptoms lumbar facet arthropathy. Post-procedure Diagnosis:: Same Indications for Procedure:: Very pleasant 42-year-old male who comes to the clinic today for bilateral RFA at L3-4, L4-5. He had successful medial branch blocks at the same levels x2. He complains his low back pain is constant, dull, aching. Pain increases when standing for any length of time. Also, pain increases when sitting for any length of time. Patient currently taking gabapentin 300 mg 1 p.o. 3 times daily as well as [place] 7.5 mg 1 p.o. 3 times daily. Procedure Details:: Lumbar RFA None Pre-procedure Diagnosis: Degenerative disc disease of lumbar spine with lumbar spondylosis and facet arthropathy Post-procedure Diagnosis: Same Indications for Procedure: Patient is a pleasant 67-year-old white female who we are treating for low back pain with lumbar spondylosis and facet arthropathy. She is done well with medial branch blocks with 80% relief of her pain symptoms. She presents for radiofrequency ablation to the facet joint/medial branches of L3-L4, L4-5 and today. She has already had the right side done and is doing very well. She presents for the left side today. Procedure Details: Lumbar RFA Informed consent was obtained and the risk and benefits of the procedure was explained to the patient. Patient was placed prone on the procedure table. The patient was prepped and draped in sterile fashion. C-arm fluoroscopy was used to view the lumbar spine. The skin and subcutaneous tissues were anesthetized using lidocaine. I placed 20-gauge RF needles into the facet joints of L3-L4, L4-L5 on the left side. We underwent sensory stimulation. There is good sensory stimulation at 0.8 V. We underwent motor stimulation. There is no motor stimulation at 2 V. We then anesthetized these levels with lidocaine and Depo-Medrol. I used a total of 40 mg Depo-Medrol for all 3 levels. I then burned all 3 levels of L3-L4, L4-5 on the left side for 4 minutes at 80 ?C. Patient tolerated the procedure well with no complication. Plan and Disposition:: We will follow-up with this patient in 2 weeks. We will reevaluate her symptoms at that time. Plan and Disposition:: She was discharged without incident.
[2022-03-18 14:20] VITALS: BP 119/68; PULSE 57; RESP 20; O2SAT 98
== END 2022-03-18 14:20 | disposition home or self-care (01) ==
LOC: SC.PAINP 13:15
PROVIDERS: PCP Emergency Medicine; Visit Provider Nurse Anesthetist, Certified Registered
DX: M51.16 Intervertebral disc disorders with radiculopathy, lumbar region (principal); M54.06 Panniculitis affecting regions of neck and back, lumbar region; M47.26 Other spondylosis with radiculopathy, lumbar region
CPT/HCPCS: 64635; 64636; J1040

== ENCOUNTER → 2022-03-25 14:51 | Outpatient (CLI) | payer OTHER, SELFPAY ==
[2022-03-25 13:42] LABS: Amphetamine/Metha Screen,Urine Negative ng/ml (<1000)
[2022-03-25 13:43] LABS: Barbiturates Screen,Urine Negative ng/ml (<200); Benzodiazepines Screen,Urine Negative ng/ml (<200)
[2022-03-25 13:44] LABS: Cannabinoid Screen,Urine Positive ng/ml (<50)
[2022-03-25 13:45] LABS: Cocaine Screen,Urine Negative ng/ml (<300); Methadone Screen,Urine Negative ng/ml (<300)
[2022-03-25 13:46] LABS: Opiate Screen,Urine Positive ng/ml (<300); Phencyclidine Screen,Urine Negative ng/ml (<25)
== END ==
PROVIDERS: PCP Emergency Medicine; Visit Provider Emergency Medicine
DX: Z79.899 Other long term (current) drug therapy (principal)
CPT/HCPCS: 80305

== ENCOUNTER → 2022-05-23 06:18 | Outpatient (CLI) | payer OTHER, SELFPAY ==
[2022-05-23 17:25] LABS: Amphetamine/Metha Screen,Urine Negative ng/ml (<1000)
[2022-05-23 17:26] LABS: Barbiturates Screen,Urine Negative ng/ml (<200); Benzodiazepines Screen,Urine Negative ng/ml (<200)
[2022-05-23 17:27] LABS: Cannabinoid Screen,Urine Positive ng/ml (<50)
[2022-05-23 17:28] LABS: Cocaine Screen,Urine Negative ng/ml (<300); Methadone Screen,Urine Negative ng/ml (<300)
[2022-05-23 17:29] LABS: Opiate Screen,Urine Negative ng/ml (<300); Phencyclidine Screen,Urine Negative ng/ml (<25)
== END ==
PROVIDERS: PCP Emergency Medicine; Visit Provider Emergency Medicine
DX: Z79.899 Other long term (current) drug therapy (principal)
CPT/HCPCS: 80305

== ENCOUNTER → 2022-07-20 10:00 | Outpatient (CLI) | payer OTHER, SELFPAY ==
[2022-07-20 18:18] LABS: Amphetamine/Metha Screen,Urine Negative ng/ml (<1000)
[2022-07-20 18:19] LABS: Barbiturates Screen,Urine Negative ng/ml (<200)
[2022-07-20 18:20] LABS: Benzodiazepines Screen,Urine Negative ng/ml (<200)
[2022-07-20 18:21] LABS: Cannabinoid Screen,Urine Positive ng/ml (<50); Cocaine Screen,Urine Negative ng/ml (<300)
[2022-07-20 18:23] LABS: Methadone Screen,Urine Negative ng/ml (<300); Opiate Screen,Urine Positive ng/ml (<300)
[2022-07-20 18:24] LABS: Phencyclidine Screen,Urine Negative ng/ml (<25)
== END ==
PROVIDERS: PCP Emergency Medicine; Visit Provider Emergency Medicine
DX: M54.42 Lumbago with sciatica, left side (principal)
CPT/HCPCS: 80305

== ENCOUNTER → 2022-09-13 10:45 | Outpatient (CLI) | payer OTHER, SELFPAY ==
[2022-09-13 15:32] LABS: Amphetamine/Metha Screen,Urine Negative ng/ml (<1000); Barbiturates Screen,Urine Negative ng/ml (<200)
[2022-09-13 15:33] LABS: Benzodiazepines Screen,Urine Negative ng/ml (<200)
[2022-09-13 15:34] LABS: Cannabinoid Screen,Urine Positive ng/ml (<50); Cocaine Screen,Urine Negative ng/ml (<300)
[2022-09-13 15:35] LABS: Methadone Screen,Urine Negative ng/ml (<300)
[2022-09-13 15:36] LABS: Opiate Screen,Urine Positive ng/ml (<300); Phencyclidine Screen,Urine Negative ng/ml (<25)
== END ==
PROVIDERS: PCP Emergency Medicine; Visit Provider Emergency Medicine
DX: Z79.899 Other long term (current) drug therapy (principal)
CPT/HCPCS: 80305

== ENCOUNTER → 2023-01-06 23:51 | Outpatient (CLI) | payer OTHER, SELFPAY ==
[2023-01-06 20:05] LABS: Amphetamine/Metha Screen,Urine Negative ng/ml (<1000); Barbiturates Screen,Urine Negative ng/ml (<200)
[2023-01-06 20:06] LABS: Benzodiazepines Screen,Urine Negative ng/ml (<200)
[2023-01-06 20:07] LABS: Cannabinoid Screen,Urine Positive ng/ml (<50); Cocaine Screen,Urine Negative ng/ml (<300)
[2023-01-06 20:08] LABS: Methadone Screen,Urine Negative ng/ml (<300)
[2023-01-06 20:09] LABS: Opiate Screen,Urine Positive ng/ml (<300); Phencyclidine Screen,Urine Negative ng/ml (<25)
== END ==
PROVIDERS: PCP Emergency Medicine; Visit Provider Emergency Medicine
DX: Z79.899 Other long term (current) drug therapy (principal)
CPT/HCPCS: 80305

== ENCOUNTER → 2023-01-18 10:07 | Outpatient (POV) | payer OTHER, SELFPAY ==
[2023-01-18 10:16] VITALS: BP 127/71; PULSE 71; RESP 18; O2SAT 97; BMI 28.6
--- NOTE | 2023-01-18 10:21 | EXP.PAIN.SOA ---
[facility] Pain Management SOAP Note Subjective:: Patient is a pleasant 42-year-old male who presents today for follow-up. We are currently treating the patient for degenerative disc disease of lumbar spine with lumbar radiculopathy symptoms, lumbar facet arthropathy, lumbar spondylosis. Today he rates his pain a 7 out of 10. Patient denies any new trauma or injury. Patient denies any change to location or type of pain he experiences. Patient does state his pain is all in his back and is worse with bending, lifting, twisting. He does state it interferes with his ability to perform activities of daily living such as cooking and cleaning and even working. He does state that he is tries to minimize his activity while at work however his job does require him to do certain bending and stooping down which causes severe pain. He describes it as an aching, throbbing sensation that is worse with increased activity. Patient has had successful medial branch block injections in the past and had a lumbar RFA bilaterally of L3-L4 and L4-L5 in March 2022. Patient did have significant improvement of at least 50%. Patient is currently prescribed gabapentin 300 mg 3 times a day and [place] 7.5 mg 3 times a day from an outside provider. Patient denies any side effects from this medication. His Anant is currently pending. Review of Systems: General: No recent weight changes, no fever, no sleep disturbances Respiratory: No cough, no shortness of air, no recurring pulmonary infections Cardiovascular/peripheral vascular: No chest pain, no palpitations, no edema, no shortness of breath Gastrointestinal: No new onset incontinence, normal bowel movements reported Genitourinary: No new onset incontinence Musculoskeletal: Low back pain Psychiatric: [Normal mood/affect] Neurological: [Denies weakness in extremities], [denies balance issues] Objective:: Physical Exam: General: Alert and oriented x3, no acute distress, pleasant and cooperative Lungs: Respirations even and unlabored, symmetrical chest expansion Eyes: PERRL Musculoskeletal: Flexion and extension of lumbar [spine] somewhat guarded secondary to pain, [antalgic gait noted] positive Kemps test Neurological: Speech clear, no gross sensory deficit Assessment:: Degenerative disc disease of lumbar spine with lumbar radiculopathy symptoms, lumbar facet arthropathy, lumbar spondylosis Plan:: Patient is experiencing significant pain in his low back and did have limited range of motion of his lumbar spine. Patient did have a positive Kemps test during her visit. I have discussed with the patient that he may benefit from repeating the lumbar RFA. Risk and benefits were discussed with the patient and he would like to proceed forward with this plan of care. Patient is not on any blood thinners. Patient has had successful medial branch blocks and RFA's in the past that provided at least 50% improvement or more. We will schedule him for a lumbar RFA bilaterally at L3-L4 and L4-L5. Patient has been instructed to contact the clinic with any concerns before the next appointment. Dr. Nixon has reviewed this note and agrees with this plan of care. This note was dictated using voice recognition software and make contain errors or omissions. [facility] Disclaimer: The information contained in this section may have been updated after the patient was seen, as this information can be updated by other users. Social History Smoking Status: Former smoker second hand exposure: No alcohol intake: never substance use type: marijuana current occupational status: other Travel in the last 8 weeks: None household members: other housing: house number of children: 0 current occupation: [employer] current occupational exposures/hazards: No caffeine: Yes
== END ==
PROVIDERS: PCP Emergency Medicine; Visit Provider Nurse Practitioner Family
DX: M51.16 Intervertebral disc disorders with radiculopathy, lumbar region (principal); M47.26 Other spondylosis with radiculopathy, lumbar region
CPT/HCPCS: 99212; G0463

== ENCOUNTER 2023-02-03 12:55 | Day surgery (SDC) | payer OTHER, SELFPAY ==
[2023-02-03 13:01] VITALS: BP 108/86; PULSE 65; RESP 18; O2SAT 98
[2023-02-03 13:09] VITALS: BP 132/75; PULSE 61; RESP 18; BMI 65.2
--- NOTE | 2023-02-03 13:18 | P.PCN_ITS ---
Procedure Date: 02/03/23 Time: 13:18 Anesthesiologist:: Aris Nixno MD Complications:: None Pre-procedure Diagnosis:: Degenerative disc disease of lumbar spine with lumbar spondylosis and lumbar facet arthropathy Post-procedure Diagnosis:: Same Indications for Procedure:: This patient is a pleasant 42-year-old white male who we are treating for low back pain with lumbar spondylosis and lumbar facet arthropathy. He has had 2 rounds of successful bilateral lumbar medial branch blocks of L3-L4 and L4-L5. He presents for RF ablation to those same levels today. Procedure Details:: Lumbar RFA informed consent was obtained and the risk and benefits of the procedure was explained to the patient. Patient was placed prone on the procedure table. The patient was prepped and draped in sterile fashion. C-arm fluoroscopy was used to view the lumbar spine. The skin and subcutaneous tissues were anesthetized using lidocaine. I placed 20-gauge RF needles into the facet joints of L3-L4 and L4-L5 bilaterally. We underwent sensory stimulation. There is good sensory stimulation at 0.8 V. We underwent motor stimulation. There is no motor stimulation at 2 V. We then anesthetized these levels with lidocaine and Depo- Medrol. I used a total of 80 mg Depo-Medrol for both levels. I then burned both levels of L3-L4 and L4-L5 facet joint/medial branches bilaterally for 4 minutes at 80 ?C. Patient tolerated the procedure well with no complication. Plan and Disposition:: We will follow-up with this patient in 2 weeks. Will reevaluate symptoms at that time.
[2023-02-03 13:30] VITALS: BP 134/95; PULSE 73; RESP 20
== END 2023-02-03 13:00 | disposition home or self-care (01) ==
PROVIDERS: PCP Emergency Medicine; Visit Provider Anesthesiology
DX: M51.36 Other intervertebral disc degeneration, lumbar region (principal); M47.816 Spondylosis without myelopathy or radiculopathy, lumbar region
CPT/HCPCS: 64635; 64636; J1030

== ENCOUNTER → 2023-02-28 16:13 | Outpatient (CLI) | payer OTHER, SELFPAY ==
[2023-02-28 13:31] LABS: Basophils # 0.1 K/mm3 (0-0.2); Basophils % 0.7 % (0.1-2.0); Eosinophils # 0.3 K/mm3 (0.0-0.4); Eosinophils % 4.4 % (0.1-12.0); Hematocrit 43.8 % (42.0-52.0); Hemoglobin 14.2 g/dL (14.1-18.0); Lymphocytes # 2.4 K/mm3 (0.7-4.5); Lymphocytes % 37.3 % (10-50); Mean Corpuscular HGB Conc 32.4 g/dL (31.8-35.4); Mean Corpuscular Hemoglobin 30.4 pg (27.0-31.2); Mean Corpuscular Volume 93.8 fl (80-94); Mean Platelet Volume 8.8 fl (7.4-10.4); Monocytes # 0.4 K/mm3 (0.1-1.0); Neutrophils # 3.3 K/mm3 (1.8-7.8); Neutrophils % 51.5 % (37.0-80.0); Platelet Count 250 K/mm3 (142-424); Red Blood Count 4.67 M/mm3 (4.60-6.20); Red Cell Distribution Width 13.6 % (11.5-17.5); White Blood Count 6.4 K/mm3 (4.8-10.8)
[2023-02-28 13:34] LABS: Alanine Aminotransferase 23 U/L (12-78); Albumin Level 5.1 g/dl (3.5-5.0); Alkaline Phosphatase 87 U/L (38-126); Anion Gap 19.1 mEq/L (5-15); Aspartate Amino Transferase 29 U/L (17-59); Bilirubin,Total 0.5 mg/dl (0.2-1.3); Blood Urea Nitrogen 5 mg/dl (9-20); Carbon Dioxide 27 mmol/L (22.0-30.0); Chloride 96 mmol/L (98-107); Chol/HDL Ratio 2.9 (1-3.5); Cholesterol 233 mg/dl (140-200); Estimated Glomerular Filt Rate 123 ml/min (>60); GFR (African American) 149 ML/MIN (>60); Globulin 2.6 g/dL (1.3-3.2); Glucose 94 mg/dl (74-100); HDL Cholesterol 81 mg/dl (40-60); Potassium 4.1 mmoL/L (3.5-5.1); Sodium 138 mmol/L (136-145); Total Protein,Serum 7.7 g/dl (6.3-8.2); Triglycerides 314 mg/dl (30-150); VLDL Cholesterol 63 mg/dL (0-40)
[2023-02-28 13:45] LABS: Direct LDL Cholesterol 115.76 mg/dL (100-129)
[2023-02-28 13:51] LABS: 25-OH Vitamin D, Total 16.5 ng/mL (30-100)
[2023-02-28 14:05] LABS: Amphetamine/Metha Screen,Urine Negative ng/ml (<1000); Thyroid Stimulating Hormone 0.84 uIU/mL (0.465-4.68)
[2023-02-28 14:06] LABS: Barbiturates Screen,Urine Negative ng/ml (<200); Benzodiazepines Screen,Urine Negative ng/ml (<200)
[2023-02-28 14:07] LABS: Cannabinoid Screen,Urine Positive ng/ml (<50); Cocaine Screen,Urine Negative ng/ml (<300)
[2023-02-28 14:08] LABS: Methadone Screen,Urine Negative ng/ml (<300)
[2023-02-28 14:09] LABS: Opiate Screen,Urine Positive ng/ml (<300); Phencyclidine Screen,Urine Negative ng/ml (<25)
== END ==
PROVIDERS: PCP Emergency Medicine; Visit Provider Emergency Medicine
DX: E78.5 Hyperlipidemia, unspecified (principal); E55.9 Vitamin D deficiency, unspecified; Z79.899 Other long term (current) drug therapy
CPT/HCPCS: 80053; 80061; 80305; 82306; 84443; 85025

== ENCOUNTER 2023-04-05 09:58 | Emergency (ER) | payer OTHER, SELFPAY ==
[2023-04-05 10:05] VITALS: BP 137/86; PULSE 64; RESP 18; TEMP 36.8; O2SAT 100; BMI 29.4
--- NOTE | 2023-04-05 10:19 | EXP.UTC ---
Discharge Plan Disposition Patient Disposition: Home, Self-Care Condition: Good Prescriptions Prescriptions: New ondansetron 4 mg tablet,disintegrating 4 mg PO Q8H PRN (Reason: nausea and vomiting) Qty: 10 0RF No Action gabapentin 300 mg capsule 300 mg PO HS Qty: 30 1RF hydrocodone-acetaminophen 7.5-325 mg tablet 1 tab PO TID PRN (Reason: pain) Qty: 90 0RF cholecalciferol (vitamin D3) 1,250 mcg (50,000 unit) capsule 1,250 mcg PO WEEKLY Qty: 12 3RF Rx Instructions: Patient should buy an OTC Vitamin D 2,000 units daily fluoxetine 20 MG capsule 20 mg PO DAILY diclofenac sodium 1 % gel 2 g topical QID Rx Instructions: apply to single elbow, wrist or hand; for hand includes palm/fingers/back of hand Referrals Follow up/Referrals: Kendall Egan MD [Primary Care Provider] - See instructions Activity Restrictions/Add. Instructions Additional Instructions/Restrictions: Drink extra fluids with and between meals. If you have difficulty drinking, try very small amounts of water or suck on ice chips. ? Avoid fruit juices, as these do not replace minerals and can actually increase diarrhea. ? Children and adults can use sports drinks to replenish electrolytes. Younger children and infants should use products formulated for children, like oral rehydration solutions. ? Eat food in small amounts and let your stomach recover. ? Get lots of rest. You may feel tired or weak. ? No greasy or fried foods for the next 24-48 hours BRAT diet Bananas Rice Apples and Forest ? Make sure to drink plenty of liquids ? Return if needed ? Straight to ER if any life threatening symptoms ? Zofran as prescribed ? Follow up with family doctor in the next 48-72 hours if no improvement or any worsening of symptoms Clinical Impressions Clinical Impression: Viral syndrome Stand Alone Forms Stand Alone Forms: Work/School Release Instructions Patient Instructions: Nausea and Vomiting-Adult, Diarrhea Discharge ED Provider: Thao Jenkins [facility] [place] HPI General Stated complaint: Vomiting nausea diarrhea abd pain Mode of Arrival: Ambulatory Source of Information: Patient Limitations: No Limitations Time Seen by Provider: 04/05/23 10:19 Description of Symptoms (Recalled from Triage Doc. by RN): PATIENT STATES HE RECENTLY HAD A STOMACH VIRUS, BUT FEELS BETTER TODAY. REQUESTING A WORK NOTE HEENT Symptoms (Recalled from RN notes): No Resp Symptoms (Recalled from RN notes): No Skin Symptoms (Recalled from RN notes): No MS Symptoms (Recalled from RN notes): No Functional Status (Recalled from RN notes): WNL History of Present Illness Provider Complaint: Patient states that he has been having N/V/D for the last couple of days and not slept much States that he last vomited yesterday but still having some nausea today States that he hasnt felt like working and came in for a work note Related Data Home Medications Medication Instructions Recorded Confirmed fluoxetine 20 mg capsule 20 mg PO DAILY Depression 05/14/21 02/28/23 diclofenac sodium 1 % topical gel 2 g topical QID Pain 01/18/23 02/28/23 Previous Rx's Medication Instructions Recorded gabapentin 300 mg capsule 300 mg PO HS nerve pain #30 caps 02/28/23 hydrocodone 7.5 mg-acetaminophen 1 tab PO TID PRN pain #90 tabs 02/28/23 325 mg tablet cholecalciferol (vitamin D3) 1,250 1,250 mcg PO WEEKLY vitamin d 03/01/23 mcg (50,000 unit) capsule deficiency #12 caps ondansetron 4 mg disintegrating 4 mg PO Q8H PRN nausea and 04/05/23 tablet vomiting #10 tabs Allergies Allergy/AdvReac Type Severity Reaction Status Date / Time codeine [CODEINE] AdvReac Mild NA-NAUSEA/V Verified 02/28/23 11:22 OMITING meloxicam [From MOBIC] AdvReac Mild NA-NAUSEA/V Verified 02/28/23 11:22 OMITING Worker's Comp Is this a Worker's Comp case?: No [facility] Disclaimer: The infor
[2023-04-05 10:24] VITALS: BP 137/86; PULSE 64; RESP 18; TEMP 36.8; O2SAT 100
== END 2023-04-05 10:26 | disposition home or self-care (01) ==
PROVIDERS: Emergency Provider Nurse Practitioner; PCP Emergency Medicine
DX: R11.2 Nausea with vomiting, unspecified (principal); R19.7 Diarrhea, unspecified; B34.9 Viral infection, unspecified; F32.A Depression, unspecified; Z87.891 Personal history of nicotine dependence
CPT/HCPCS: 99212; 99214; G0463

== ENCOUNTER → 2023-04-24 14:52 | Outpatient (CLI) | payer OTHER, SELFPAY ==
[2023-04-24 19:52] LABS: Amphetamine/Metha Screen,Urine Negative ng/ml (<1000); Barbiturates Screen,Urine Negative ng/ml (<200)
[2023-04-24 19:53] LABS: Benzodiazepines Screen,Urine Negative ng/ml (<200)
[2023-04-24 19:54] LABS: Cannabinoid Screen,Urine Positive ng/ml (<50)
[2023-04-24 19:55] LABS: Cocaine Screen,Urine Negative ng/ml (<300)
[2023-04-24 20:02] LABS: Opiate Screen,Urine Positive ng/ml (<300)
[2023-04-24 20:04] LABS: Phencyclidine Screen,Urine Negative ng/ml (<25)
[2023-04-24 20:17] LABS: Methadone Screen,Urine Negative ng/ml (<300)
== END ==
PROVIDERS: PCP Emergency Medicine; Visit Provider Emergency Medicine
DX: Z79.899 Other long term (current) drug therapy (principal)
CPT/HCPCS: 80305

== ENCOUNTER → 2023-06-23 06:46 | Outpatient (CLI) | payer OTHER, SELFPAY ==
[2023-06-23 19:08] LABS: Amphetamine/Metha Screen,Urine Negative ng/ml (<1000)
[2023-06-23 19:09] LABS: Barbiturates Screen,Urine Negative ng/ml (<200)
[2023-06-23 19:10] LABS: Benzodiazepines Screen,Urine Negative ng/ml (<200)
[2023-06-23 19:11] LABS: Cannabinoid Screen,Urine Positive ng/ml (<50)
[2023-06-23 19:15] LABS: Cocaine Screen,Urine Negative ng/ml (<300)
[2023-06-23 19:16] LABS: Methadone Screen,Urine Negative ng/ml (<300); Opiate Screen,Urine Positive ng/ml (<300)
[2023-06-23 19:17] LABS: Phencyclidine Screen,Urine Negative ng/ml (<25)
== END ==
PROVIDERS: PCP Emergency Medicine; Visit Provider Emergency Medicine
DX: Z79.899 Other long term (current) drug therapy (principal)
CPT/HCPCS: 80305

== ENCOUNTER → 2023-08-21 15:59 | Outpatient (CLI) | payer OTHER, SELFPAY ==
[2023-08-21 12:56] LABS: Amphetamine/Metha Screen,Urine Negative ng/ml (<1000)
[2023-08-21 12:57] LABS: Barbiturates Screen,Urine Negative ng/ml (<200); Benzodiazepines Screen,Urine Negative ng/ml (<200)
[2023-08-21 12:58] LABS: Cannabinoid Screen,Urine Positive ng/ml (<50)
[2023-08-21 12:59] LABS: Cocaine Screen,Urine Negative ng/ml (<300); Methadone Screen,Urine Negative ng/ml (<300)
[2023-08-21 13:00] LABS: Opiate Screen,Urine Positive ng/ml (<300)
[2023-08-21 13:01] LABS: Phencyclidine Screen,Urine Negative ng/ml (<25)
== END ==
PROVIDERS: PCP Emergency Medicine; Visit Provider Emergency Medicine
DX: F41.9 Anxiety disorder, unspecified (principal)
CPT/HCPCS: 80305

== ENCOUNTER 2023-10-12 09:26 | Emergency (ER) | payer OTHER, SELFPAY ==
[2023-10-12 09:35] VITALS: BP 121/74; PULSE 63; RESP 18; TEMP 36.8; O2SAT 96; BMI 28.5
[2023-10-12 09:50] LABS: UTC Influenza A Antigen Negative (Negative)
[2023-10-12 09:51] LABS: UTC Influenza B Antigen Negative (Negative)
--- NOTE | 2023-10-12 10:00 | ED_ITS ---
Discharge Plan Disposition Patient Disposition: Home, Self-Care Condition: Good Prescriptions Prescriptions: New ondansetron 4 mg Tablet,Disintegrating 4 mg PO Q8H PRN (Reason: Nausea) Qty: 12 0RF dicyclomine 10 mg capsule 10 mg PO TID PRN (Reason: abdominal pain) Qty: 20 0RF No Action gabapentin 300 mg capsule 300 mg PO HS Qty: 30 1RF hydrocodone-acetaminophen 7.5-325 mg tablet 1 tab PO TID PRN (Reason: pain) Qty: 90 0RF cholecalciferol (vitamin D3) 1,250 mcg (50,000 unit) capsule 1,250 mcg PO WEEKLY Qty: 12 3RF Rx Instructions: Patient should buy an OTC Vitamin D 2,000 units daily fluoxetine 20 mg capsule 20 mg PO DAILY Qty: 90 0RF atorvastatin [Lipitor] 20 mg tablet 20 mg PO HS Qty: 30 2RF diclofenac sodium 1 % gel 2 g topical QID Rx Instructions: apply to single elbow, wrist or hand; for hand includes palm/fingers/back of hand Referrals Follow up/Referrals: Brian Larry APRN [Primary Care Provider] - See instructions Activity Restrictions/Add. Instructions Additional Instructions/Restrictions: Drink plenty of fluids. Take tylenol or ibuprofen for pain or fever. Take the medications as directed. Follow up with your regular doctor. GO TO THE ER FOR ANY WORSENING SYMPTOMS Clinical Impressions Clinical Impression: Viral syndrome, Gastroenteritis Stand Alone Forms Stand Alone Forms: Work/School Release Instructions Patient Instructions: Viral Gastroenteritis, DI for Viral Gastroenteritis -- Adult, Ondansetron Discharge ED Provider: Luan Rhodes [facility] General Stated complaint: stomach pain, diarrhea, vomitting Mode of Arrival: Ambulatory Source of Information: Patient Limitations: No Limitations Time Seen by Provider: 10/12/23 10:00 Description of Symptoms (Recalled from Triage Doc. by RN): vomiting, hot and cold flashes, and fatigued HEENT Symptoms (Recalled from RN notes): No Resp Symptoms (Recalled from RN notes): No Skin Symptoms (Recalled from RN notes): No MS Symptoms (Recalled from RN notes): Yes Functional Status (Recalled from RN notes): n/a History of Present Illness Provider Complaint: He states that for the past 2 days he has had n/v, abdominal pain, abdominal cramping, chills, fever and malaise. Related Data Home Medications Medication Instructions Recorded Confirmed diclofenac sodium 1 % topical gel 2 g topical QID Pain 01/18/23 08/21/23 Previous Rx's Medication Instructions Recorded cholecalciferol (vitamin D3) 1,250 1,250 mcg PO WEEKLY vitamin d 03/01/23 mcg (50,000 unit) capsule deficiency #12 caps gabapentin 300 mg capsule 300 mg PO HS nerve pain #30 caps 08/21/23 hydrocodone 7.5 mg-acetaminophen 1 tab PO TID PRN pain #90 tabs 08/21/23 325 mg tablet atorvastatin 20 mg tablet (Lipitor) 20 mg PO HS #30 tabs 09/19/23 fluoxetine 20 mg capsule 20 mg PO DAILY Depression #90 caps 09/19/23 dicyclomine 10 mg capsule 10 mg PO TID PRN abdominal pain 10/12/23 #20 caps ondansetron 4 mg disintegrating 4 mg PO Q8H PRN Nausea #12 tabs 10/12/23 tablet Allergies Allergy/AdvReac Type Severity Reaction Status Date / Time codeine [CODEINE] AdvReac Mild NA-NAUSEA/V Verified 10/12/23 09:43 OMITING meloxicam [From MOBIC] AdvReac Mild NA-NAUSEA/V Verified 10/12/23 09:43 OMITING Worker's Comp Is this a Worker's Comp case?: No [facility] Disclaimer: The information contained in this section may have been updated after the patient was seen, as this information can be updated by other users. Medical History Depression Surgical History History of carpal tunnel release History of cholecystectomy History of repair of rotator cuff History of tonsillectomy Family History Other No significant family history Social History Smoking Status: Former smoker tobacco type: cigarettes packs per day: 1 second hand exposure: No alcohol intake: never substance use type: marijuana current occupational status: other Travel in the last 8 weeks: None household members: other housing: house number of children: 0 current occupation: [employer] current occupational exposures/hazards: No caffeine: Yes ROS Obtained: Yes All systems reviewed & no additional complaints except as documented Constitutional Constitutional: Denies chills, Denies fever(s) and Reports poor appetite ENT Ears, Nose, Mouth, and Throat: Denies dizziness and Denies sore throat Cardiovascular Cardiovascular: Denies dyspnea Respiratory Respiratory: Denies chest congestion, Denies cough and Denies dyspnea Gastrointestinal Gastrointestingal: Reports abdominal pain, cramping, diarrhea, nausea and vomiting Musculoskeletal Musculoskeletal: Denies arthralgias Integumentary/Breasts Skin/Breast: Denies rash Neurologic Neurologic: Denies dizziness Physical Exam General General appearance: alert and in no apparent distress Head Head exam: atraumatic and normocephalic Eye Eye exam: Present normal appearance, PERRL and EOMI ENT ENT exam: Present normal exam, normal oropharynx, mucous membranes moist, TM's normal bilaterally and normal external ear exam Neck Neck exam: Present normal inspection, full ROM and trachea midline; Absent tenderness, meningismus or lymphadenopathy Chest Chest inspection: Present normal inspection and symmetric chest wall rise; Absent tenderness, rash or abscess Respiratory Respiratory exam: Present normal lung sounds bilaterally; Absent respiratory distress, wheezes or stridor Cardiovascular Cardiovascular exam: Present regular rate and normal rhythm; Absent irregular rhythm, systolic murmur, diastolic murmur or JVD Abdominal Exam Abdominal exam: Present soft and hyperactive bowel sounds; Absent distention, tenderness, guarding, rebound, rigidity, psoas sign, obturator sign, heel tap sign, Hassan's sign, Rovsing's sign or tenderness at McBurney's Point Extremities Exam Extremities exam: Present normal inspection and full ROM; Absent tenderness Back Exam Back exam: Present normal inspection and full ROM; Absent tenderness, CVA tenderness (R) or CVA tenderness (L) Neurological Exam Neurological exam: Present alert, oriented X3 and CN II-XII intact Psychiatric Psychiatric exam: Present normal affect and normal mood Skin Skin exam: Present warm, dry, intact and normal color Lymphatic Lymphatic Findings: no adenopathy Medical Decision Making Medical Records Medical records reviewed: No I reviewed the patient's medical records. Anant Inquiry Pt receiving controlled substance: No Vital Signs: 10/12/23 09:35 Temperature 98.2 F Temperature Source Oral Pulse Rate [Right Radial] 63 Respiratory Rate 18 Blood Pressure [Right Arm] 121/74 Blood Pressure Mean [Right Arm] 89 Blood Pressure Source [Right Arm] Automatic Cuff Blood Pressure Position [Right Arm] Sitting 02 Sat by Pulse Oximetry 96 Oxygen Delivery Method Room Air Lab Data Lab results reviewed: Yes I reviewed the patient's lab results. Lab Results 10/12/23 09:50: Influenza Type A Ag Negative, Influenza Type B Ag Negative 10/12/23 10:38
[2023-10-12 10:59] LABS: Basophils % 0.6 % (0.1-2.0); Eosinophils # 0.1 K/mm3 (0.0-0.4); Eosinophils % 1.5 % (0.1-12.0); Hematocrit 47.5 % (42.0-52.0); Hemoglobin 15.4 g/dL (14.1-18.0); Lymphocytes # 1.3 K/mm3 (0.7-4.5); Lymphocytes % 20.4 % (10-50); Mean Corpuscular HGB Conc 32.5 g/dL (31.8-35.4); Mean Corpuscular Hemoglobin 30.2 pg (27.0-31.2); Mean Corpuscular Volume 92.7 fl (80-94); Mean Platelet Volume 8.3 fl (7.4-10.4); Monocytes # 0.3 K/mm3 (0.1-1.0); Monocytes % 5.3 % (1.7-9.3); Neutrophils # 4.4 K/mm3 (1.8-7.8); Neutrophils % 72.3 % (37.0-80.0); Platelet Count 227 K/mm3 (142-424); Red Blood Count 5.12 M/mm3 (4.60-6.20); Red Cell Distribution Width 13.7 % (11.5-17.5); White Blood Count 6.1 K/mm3 (4.8-10.8)
[2023-10-12 11:49] VITALS: BP 121/74; PULSE 63; RESP 18; TEMP 36.8; O2SAT 96
== END 2023-10-12 11:49 | disposition home or self-care (01) ==
PROVIDERS: Emergency Provider Nurse Practitioner Family; PCP Nurse Practitioner Family
DX: A08.4 Viral intestinal infection, unspecified (principal); R10.9 Unspecified abdominal pain; R19.7 Diarrhea, unspecified; R11.2 Nausea with vomiting, unspecified; R50.9 Fever, unspecified; R53.81 Other malaise; Z87.891 Personal history of nicotine dependence
CPT/HCPCS: 85025; 87804; 99212; 99214; G0463

== ENCOUNTER 2023-10-17 11:58 | Outpatient (CLI) | payer OTHER, SELFPAY ==
[2023-10-17 13:23] LABS: Amphetamine/Metha Screen,Urine Negative ng/ml (<1000); Barbiturates Screen,Urine Negative ng/ml (<200); Benzodiazepines Screen,Urine Negative ng/ml (<200); Cannabinoid Screen,Urine Positive ng/ml (<50); Cocaine Screen,Urine Negative ng/ml (<300); Methadone Screen,Urine Negative ng/ml (<300); Opiate Screen,Urine Positive ng/ml (<300); Phencyclidine Screen,Urine Negative ng/ml (<25)
== END 2023-10-17 23:59 ==
LOC: LAB.DROPOF 11:58
PROVIDERS: PCP Nurse Practitioner Family; Visit Provider Nurse Practitioner Family
DX: F41.9 Anxiety disorder, unspecified (principal)
CPT/HCPCS: 80307

== ENCOUNTER → 2023-10-25 10:48 | Outpatient (POV) | payer OTHER, SELFPAY ==
--- NOTE | 2023-10-25 12:05 | A.OFFVIS_ITS ---
[facility] Pain Management SOAP Note Subjective:: Patient is a pleasant 42-year-old male who presents today for follow-up. We are currently treating the patient for degenerative disc disease of lumbar spine with lumbar radiculopathy symptoms, lumbar facet arthropathy, lumbar spondylosis. Today he rates his pain a 7 out of 10. Patient denies any new trauma or injury. He does state that he feels like his last procedure of the lumbar ablation has officially worn off. Patient had this done back in January 2023 and does state that it provided at least 50% improvement lasting approximately 6 months however over the last months it has slowly started to go back towards his baseline. Today he states his pain is all in his back and is worse with bending, lifting, twisting. He states when he had that procedure done that he was able to increase his activity with decreased pain symptoms and felt overall more functional. Patient is interested in repeating this injection due to how well it did work. Patient states he currently has problems performing activities of daily living such as cooking and cleaning and even working due to the pain. He describes it as an aching, throbbing sensation that is worse with increased activity. He is currently prescribed gabapentin 300 mg 3 times a day and [place] 5 mg 3 times a day from an outside provider. Patient denies any side effects from this medication. His Anant has been reviewed and is appropriate. Patient denies any radiating symptoms into his legs. Review of Systems: General: No recent weight changes, no fever, no sleep disturbances Respiratory: No cough, no shortness of air, no recurring pulmonary infections Cardiovascular/peripheral vascular: No chest pain, no palpitations, no edema, no shortness of breath Gastrointestinal: No new onset incontinence, normal bowel movements reported Genitourinary: No new onset incontinence Musculoskeletal: Low back pain Psychiatric: [Normal mood/affect] Neurological: [Denies weakness in extremities], [denies balance issues] Objective:: Physical Exam: General: Alert and oriented x3, no acute distress, pleasant and cooperative Lungs: Respirations even and unlabored, symmetrical chest expansion Eyes: PERRL Musculoskeletal: Flexion and extension of lumbar [spine] somewhat guarded seco ndary to pain, [antalgic gait noted] positive Kemps test Neurological: Speech clear, no gross sensory deficit Assessment:: degenerative disc disease of lumbar spine with lumbar radiculopathy symptoms, lumbar facet arthropathy, lumbar spondylosis Plan:: Patient is experiencing worsening pain in his low back with limited range of motion of his lumbar spine and a positive Kemps test. I have discussed with the patient that he may benefit from repeat lumbar RFA. Risk and benefits were discussed with the patient and he would like to proceed forward with this plan of care. Patient did have a successful RFA back in January 2023 with 50% improvement lasting approximately 6 months or more. Patient has tried and failed conservative treatment such as oral medications, heat and ice, topicals, physical therapy, at home stretching exercise for longer than 6 weeks. Patient did have 2 successful lumbar blocks prior to his RFA. Patient will be scheduled for a lumbar RFA bilaterally L3-L4 and L4-L5. Patient has been instructed to contact the clinic with any concerns before the next appointment. Dr. Nixon has reviewed this note and agrees with this plan of care. This note was dictated using voice recognition software and make contain errors or omissions. [facility] Disclaimer: The information contained in this section may have been updated after the patient was seen, as this information can be updated by other users. 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
[2023-10-25 12:55] VITALS: BP 137/91; PULSE 64; RESP 18; O2SAT 98; BMI 28.1
== END ==
LOC: SC.PAIN 10:49
PROVIDERS: PCP Nurse Practitioner Family; Visit Provider Nurse Practitioner Family
DX: M51.16 Intervertebral disc disorders with radiculopathy, lumbar region (principal); M47.26 Other spondylosis with radiculopathy, lumbar region
CPT/HCPCS: 99212; G0463

== ENCOUNTER 2023-11-07 10:40 | Day surgery (SDC) | payer OTHER, SELFPAY ==
[2023-11-07 10:59] VITALS: BP 127/67; PULSE 60; RESP 16; TEMP 36.5; O2SAT 96; BMI 28.1
--- NOTE | 2023-11-07 11:07 | P.PCN_ITS ---
Procedure Date: 11/07/23 Time: 11:00 Anesthesiologist:: Erik Hackett CRNA Complications:: None Pre-procedure Diagnosis:: Degenerative disc lumbar spine multilevels. Lumbar radiculopathy. Lumbar facet arthropathy. Lumbar spondylosis Post-procedure Diagnosis:: Same Indications for Procedure:: Patient is a very pleasant 42-year-old male comes our clinic today for bilateral L3-4, L4-5 radiofrequency ablation. Patient describes low back pain as constant, dull, aching. Patient has difficulty with flexion, extension, left and right rotation. Patient rates his pain 7/10. Procedure Details:: Informed consent was obtained and the risk and benefits of the procedure was explained to the patient. Patient was placed prone on the procedure table. The patient was prepped and draped in sterile fashion. C-arm fluoroscopy was used to view the lumbar spine. The skin and subcutaneous tissues were anesthetized using lidocaine. I placed 20-gauge RF needles into the facet joints of L3-L4, L4-L5 on the left side. We underwent sensory stimulation. There is good sensory stimulation at 0.8 V. We underwent motor stimulation. There is no motor stimulation at 2 V. We then anesthetized these levels with lidocaine and Depo- Medrol. I used a total of 40 mg Depo-Medrol for all 3 levels. I then burned all 3 levels of L3-L4, L4-5 on the left side for 4 minutes at 80 ?C. This process was then repeated on the right side. Patient tolerated the procedure well with no complication. Plan and Disposition:: Patient was discharged without incident.
[2023-11-07] MEDS: LIDOCAINE 1% 5ML PF VIAL 15 ML (11:16)
[2023-11-07] MEDS: BUPIVACAINE 0.25% 10ML INJ 25 MG IJ (11:16)
[2023-11-07] MEDS: methylPREDNISolone ACETATE 80MG/ML VIAL 80 MG (11:16)
[2023-11-07 11:25] VITALS: BP 117/69; PULSE 57; RESP 18; O2SAT 98
[2023-11-07 11:28] VITALS: BP 122/71; PULSE 67; RESP 18; O2SAT 97
[2023-11-07 11:30] VITALS: BP 122/71; PULSE 67; RESP 18; O2SAT 97
== END 2023-11-07 11:25 | disposition home or self-care (01) ==
PROVIDERS: PCP Nurse Practitioner Family; Visit Provider Nurse Anesthetist, Certified Registered
DX: M51.16 Intervertebral disc disorders with radiculopathy, lumbar region (principal); M47.816 Spondylosis without myelopathy or radiculopathy, lumbar region
CPT/HCPCS: 64635; 64636; J1040

== ENCOUNTER 2024-02-27 09:00 | Outpatient (RCR) | payer OTHER, SELFPAY ==
--- NOTE | 2024-02-20 08:56 | HMH.PTOPEV ---
PT Outpatient Evaluation Rehab PT Outpatient Evaluation Start: 02/20/24 08:31 Freq: Status: Active Protocol: Document 02/20/24 08:32 [email or web address] (Rec: 02/20/24 08:56 [email or web address] [id number]) E-signed By Erik Deluna, PT Outpatient Therapy Subjective History Subjective History Pt. is a 43 year old male who presents to [facility] Outpatient Physical Therapy Services in [place] for the initial evaluation this date( 02/20/24) w/ c/o subacute on chronic and constant B/L lumbar and BLE(L>R) P!, locking, and numbness since he was 34 years of age that has progressively been getting worse in the last few months. Pt. reports feeling really good for 2 wks. w/ ablations in the lumbar spine through the [facility]. Pt . also reports having some symptom relief w/ previous steroid injections and prescribed pain medicine. Pt. reports having an increase in lumbar and BLE P! 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 Pt. reports having no symptom relief w/ previous Physical Therapy. Pt. reports his previous MRI 5 years ago indicated a central bulge at L4/L5 and arthropathy. Pt. reports increased BLE paresthesia when he sits for a prolonged period of time on hard surfaces including the toilet. Pt. RTMD in March 2024. Current medications include Atorvastatin and Hydrocodone. PMH includes Hyperlipidemia, S /P RUE shldr. RC Repair, S/P RUE CTS, and family history( Aunt) of cancer. New diagnosis of cancer in past 12 No months? Chief Complaint Pain,Stiff,Catches/Locks, Paresthesia,Weakness Symptom Type Ache,Sharp,Dull,Stabbing, Burning,Numbness,Tingling, Shooting Symptoms Relieved By Rest/Positioning,Ice, Prescription Meds Symptoms Aggravated By Sitting,Standing,Bending/ Stooping,Physical Activity, Twisting,Walking,Lifting Prior Functional Limitations None Current Functional Limitations Lifting,Standing,Sitting, Recreation Activity,Walking, Bending/Stooping Symptom Description Constant but Variable,Activity Dependent Level of pain today (0-10) 6 Pain scale - at its best (0-10) 5 Pain scale - at its worst (0-10) 7 Lumbopelvic Eval Posture Thoracic Spine Posture Standing Position Neutral Lumbar Spine Posture Standing Position Neutral Assistive device Assistive Devices None / NA Gait Observation General Gait Pattern Observation No Deviations/Normal Palapation tenderness bilateral lumbar spinal tenderness Yes: L3-S1 paraspinal tenderness Yes: B/L adjacent LSPS to lumbar spinal tenderness above buttock tenderness Yes: B/L piriformis mms. Lumbar/Sacral Palpation Findings Tenderness Lumbar/Sacral Palpation Overall Comment grade 4 +TTP to assessment above and B/L PSIS Accessory Movement L-spine Vertebrae Accessory Movements Central P/A [place],Right P/A that Elicit Symptoms [place],Left P/A [place] L3 bilateral L4 bilateral L5 bilateral S1 bilateral Range of Motion Lumbar Spine Active Flexion Range of 26 Motion (degrees) Lumbar Spine Active Extension Range of 9 Motion (degrees) Left Lumbar Spine Lateral Flexion Active 24 Range of Motion (degrees) Right Lumbar Spine Lateral Flexion 15 Active Range of Motion (degrees) Lumbar Spine ROM Limitations Soft Tissue Tightness,Muscle Weakness,Muscle Tone,Pain Manual Muscle Test Bilateral Knee Extension Strength Grade 4- Good- Knee Flexion Strength Grade 4- Good- Hip Flexion Strength Grade 4 Good Hip Abduction Strength Grade 4- Good- Hip Adduction Strength Grade 4- Good- Hip External Rotation Strength Grade 4- Good- Hip Internal Rotation Strength Grade 4- Good- Hip Extension Strength Grade 4 Good Gluteus Aydin Strength Grade 4 Good Extensor Hallucis Longus Strength Grade 4 Good Ankle Dorsiflexion Strength Grade 4- Good- Gastronemius/Soleus Strength Grade 5 Normal DTR Rt Patellar 2+ Lt Patellar 2+ Rt Gastroc/Soleus 0 Lt Gastroc/Soleus 0 Altered Sensation Bilateral LE Dermatome Level L1,L2,L3,L4,L5,S1 Comment vocalized light touch discrimination w/ Physical Therapist's digit symmetrical in BLEs Special Tests Lumbar Spine Screen Positive Hip Piriformis Test Positive Left,Positive Right Sciatic Nerve Tension Test Positive Left,Positive Right Hip 90-90 Straight Leg Raise Test Positive Left,Positive Right Bilateral Straight Leg Raise Test Positive Lumbar [place] Distraction Test/Manual Positive Traction Outpatient Therapy Assessment Impairments Problems/Impairmments Palpation Tenderness,Impaired Range of Motion,Impaired Strength,Impaired Walking, Impaired Standing,Impaired Sitting,Impaired Lifting, Impaired Shower/Bathing, Impaired Bending,Impaired Recreational Activities, Impaired Work Activities, Subjective C/O Pain,Impaired Self Care/Self Management Prognosis Rehab Potential Good Comment w/ HEP compliancy Clinical Impression Consistent with Diagnosis Yes Consistent with lumbar radiculopathy, L>R Short Term Goals Number of Weeks 2 Decreased Palpation Tenderness Yes: grade 1-2 +TTP to TTP assessment above Decrease Subjective C/O Pain Yes: worse:02/15 Patient to be Ind w/ HEP Yes Stocking Inspector Goals Number of Weeks 4 Decreased Palpation Tenderness Yes: grade 1 +TTP to TTP assessment above Increase Range of Motion Yes: lumbar AROM >90% norms grossly Increase Strength Yes: 4+ to 5/5 BLE MMT scores grossly Increase Ability to Walk Yes Increase Ability to Stand Yes Increase Ability to Sit Yes Improve Ability to Shower/Bathe Self Yes: Pt. 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 Improve Oswestry Score Yes Decrease Subjective C/O Pain Yes: worse:-12/16 Patient to be Ind w/ Advanced HEP Yes Outpatient Therapy Plan of Care Treatment Plan May Include Therapeutic Exercise Including Home Yes Exercise Program Manual Therapy Techniques Yes Neuromuscular Re-education Yes Therapeutic Activities to Return to Yes Previous Functional/Work Level ADL/Self Care Education Yes Mechanical Traction Yes Dry Needling Yes Thermal Modalities Yes Electrical Stimulation Yes Ultrasound/Phonophoresis Yes Iontophoresis Yes Vasopneumatic Compression Pump Yes Massage Yes Eval/Re-Eval Yes Frequency Times per week 2 Duration Number of Weeks 4 Addendums This patient is a candidate for social No or vocational rehab? Patient/Guardian verbally acknowledges Yes understanding of treatment program and consents to further treatment? Patient/Guardian verbally acknowledges Yes understanding of diagnosis, prognosis and goals for treatment? Eval Complexity PT Charges 52129 - Low Complexity Shoulder/Elbow Eval Shoulder Objective Measurements Elbow Objective Measurements PHYSICIAN CERTIFICATION: I certify the specified therapy services for Jorge Luis Luevano are required, authorized, and reviewed every 30 days.
== END 2024-04-08 12:00 | disposition home or self-care (01) ==
LOC: PT 09:00
PROVIDERS: Visit Provider Nurse Practitioner Family
DX: M54.42 Lumbago with sciatica, left side (principal); M47.819 Spondylosis without myelopathy or radiculopathy, site unspecified; M51.36 Other intervertebral disc degeneration, lumbar region
CPT/HCPCS: 97010; 97014; 97110; 97140; 97163; G0283

== ENCOUNTER 2024-05-03 21:56 | Emergency (ER) | payer OTHER, SELFPAY ==
[2024-05-03] VITALS (7 sets, daily range): BP systolic 140–158; BP diastolic 90–111; PULSE 61–70; RESP 16–18; TEMP 36.5; O2SAT 97–100; BMI 27.8
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
[2024-05-03] MEDS: TET/DIPHTH/PERT-ADULT 0.5ML SYRINGE 0.5 ML IM (22:45)
[2024-05-03] MEDS: ACETAMINOPHEN 500MG TAB 1000 MG PO (22:46)
[2024-05-03] MEDS: OXYCODONE 5MG IMMEDIATE RELEASE TABLET 5 MG PO (22:46)
[2024-05-03] MEDS: ONDANSETRON 4MG ODT 4 MG SL (22:47)
[2024-05-03] MEDS: KETOROLAC 30MG/ML VIAL 30 MG IM (22:47)
[2024-05-03] MEDS: BACITRACIN ZINC OINT 30GM TUBE TP (23:42)
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
== END 2024-05-03 23:50 | disposition home or self-care (01) ==
PROVIDERS: Emergency Provider Emergency Medicine; PCP Nurse Practitioner Family
DX: T22.112A Burn of first degree of left forearm, initial encounter (principal); T23.102A Burn of first degree of left hand, unspecified site, initial encounter; X10.2XXA Contact with fats and cooking oils, initial encounter; Z23 Encounter for immunization
CPT/HCPCS: 90471; 90715; 96372; 99283; J1885

== ENCOUNTER 2025-03-20 14:00 | Outpatient (CLI) | payer OTHER, SELFPAY ==
[2025-03-20 15:27] LABS: Coronavirus 19, PCR Not Detected (NotDetected); Human Rhinovirus Not Detected (NotDetected); Influenza A, PCR Not Detected (NotDetected); Influenza B, PCR Not Detected (NotDetected); Respiratory Syncytial Virus Not Detected (NotDetected)
== END 2025-03-20 23:59 | disposition home or self-care (01) ==
LOC: LAB.DROPOF 03-21 23:55
PROVIDERS: PCP Nurse Practitioner; Visit Provider Nurse Practitioner
DX: R50.9 Fever, unspecified (principal)
CPT/HCPCS: 87631

== ENCOUNTER 2025-07-07 09:19 | Emergency (ER) | payer BC, SELFPAY ==
[2025-07-07 09:31] VITALS: BP 149/95; PULSE 89; RESP 17; TEMP 37.1; O2SAT 97; BMI 30.7
--- NOTE | 2025-07-07 10:13 | CT_ITS ---
FINAL REPORT TECHNIQUE: After the administration of oral and intravenous contrast, axial images were obtained through the abdomen and pelvis by computed tomography. The study was performed with techniques to keep radiation dose as low as reasonably achievable, (ALARA). Individual dose reduction techniques using automated exposure control or adjustment of mA and/or kV according to the patient's size were employed. CLINICAL HISTORY: RUQ abd pain, s/p sulaiman COMPARISON: None FINDINGS: Abdomen: There are nodular airspace infiltrates present in the right middle lobe and lingula, as well as atelectasis in the right lung base. There is moderate fatty infiltration of the liver. There is a low-attenuation lesion in the posterior right lobe of the liver measuring 3 cm in size, best seen on coronal image 55 of series 1001. The gallbladder is surgically absent. The spleen, pancreas, adrenals and kidneys appear unremarkable. The aorta is normal in caliber. There is no free fluid or adenopathy. Pelvis: The appendix is normal in appearance. The urinary bladder is incompletely distended. There is no free fluid or adenopathy. There are vascular calcifications in the aorto-iliac vessels somewhat greater than expected for the patient's chronologic age. IMPRESSION: 1. Nodular airspace infiltrates in the right middle lobe and lingula, with atelectasis in the right lung base. Favor that these represent inflammatory etiology, recommend follow-up CT in 4 weeks to reevaluate. 2. Low-attenuation lesion in the posterior right liver, 3 cm in size, indeterminant, may represent a complex cyst versus cystic mass. Recommend ultrasound to better characterize. Reviewed, Interpreted and Dictated by Jose Manuel Chávez MD Transcribed by Debra Stewart Authenticated and [facility]
[2025-07-07 10:18] LABS: Hematocrit 42.6 % (42.0-52.0); Hemoglobin 14.3 g/dL (14.1-18.0); Immature Granulocytes % 0.3 %; Mean Corpuscular HGB Conc 33.6 g/dL (31.8-35.4); Mean Corpuscular Hemoglobin 30.2 pg (27.0-31.2); Mean Corpuscular Volume 89.9 fl (80-94); Nucleated Red Blood Cells % 0 %; Platelet Count 329 K/mm3 (142-424); Red Blood Count 4.74 M/mm3 (4.60-6.20); Red Cell Distribution Width-SD 41.7 fL; White Blood Count 9.9 K/mm3 (4.8-10.8)
[2025-07-07] MEDS: ACETAMINOPHEN 500MG TAB 1000 MG PO (10:18)
[2025-07-07 10:21] LABS: Albumin Level 4.5 g/dl (3.5-5.0); Chloride 98 mmol/L (98-107); Potassium 3.6 mmoL/L (3.5-5.1); Sodium 138 mmol/L (136-145)
[2025-07-07] MEDS: KETOROLAC 15MG/ML VIAL 15 MG IM (10:21)
[2025-07-07 10:24] LABS: Alanine Aminotransferase 24 U/L (12-78); Albumin/Globulin Ratio 1.2 (1.1-1.8); Alkaline Phosphatase 91 U/L (38-126); Anion Gap 11.6 mEq/L (5-15); Aspartate Amino Transferase 32 U/L (17-59); Bilirubin,Total 0.6 mg/dl (0.2-1.3); Blood Urea Nitrogen 9 mg/dl (9-20); Calcium 9.6 mg/dl (8.4-10.2); Carbon Dioxide 32 mmol/L (22.0-30.0); Creatinine Clearance Estimated 188 mL/min (50-200); Creatinine,Serum 0.70 mg/dl (0.66-1.25); Estimated Glomerular Filt Rate 122 ml/min (>60); GFR (African American) 148 ML/MIN (>60); Globulin 3.8 g/dL (1.3-3.2); Glucose 133 mg/dl (74-100); Lipase 146 U/L (23-300); Total Protein,Serum 8.3 g/dl (6.3-8.2)
[2025-07-07] MEDS: IOPAMIDOL-370 (76%);100ML BOTTLE 75 ML IV (10:36)
[2025-07-07] MEDS: SODIUM CHLORIDE 0.9% 10ML SYR (RAD ONLY) 10 ML IV (10:37)
--- NOTE | 2025-07-07 11:09 | ED_ITS ---
Discharge Plan Disposition Patient Disposition: Home, Self-Care Prescriptions Prescriptions: New amoxicillin-pot clavulanate 875-125 mg tablet 1 tab PO BID 7 Days Qty: 14 0RF No Action hydrocodone-acetaminophen 5-325 mg tablet 0.5 tab PO benzonatate 100 mg capsule 100 mg PO TID PRN (Reason: cough) Qty: 30 0RF melatonin 5 mg tablet See Rx Instructions .ROUTE .COMPLEX Qty: 30 2RF Dose Instruction: TAKE 1 TABLET 1 TIME EACH DAY AT BEDTIME NEEDED FOR SLEEP Rx Instructions: TAKE 1 TABLET 1 TIME EACH DAY AT BEDTIME NEEDED FOR SLEEP cholecalciferol (vitamin D3) 1,250 mcg (50,000 unit) capsule 1,250 mcg PO WEEKLY Qty: 12 3RF Rx Instructions: Patient should buy an OTC Vitamin D 2,000 units daily fluoxetine 20 mg capsule 20 mg PO DAILY Qty: 90 2RF atorvastatin 20 mg tablet See Rx Instructions .ROUTE .COMPLEX Qty: 90 0RF Dose Instruction: TAKE 1 TABLET 1 TIME EACH DAY AT BEDTIME Rx Instructions: TAKE 1 TABLET 1 TIME EACH DAY AT BEDTIME Referrals Follow up/Referrals: Benja Ho MD [Primary Care Provider, Family Practice] - See instructions Activity Restrictions/Add. Instructions Additional Instructions/Restrictions: You have been seen and evaluated in the emergency department. Please take Augmentin for right lower lobe pneumonia. Return to the ED should your symptoms worsen. Please follow-up with your primary care doctor with respect to your right liver cyst. You will likely need an ultrasound on an outpatient basis. Clinical Impressions Clinical Impression: Abdominal pain, acute, right upper quadrant Right lower lobe pneumonia Qualifiers: Pneumonia type: due to unspecified organism Qualified Code(s): J18.9 - Pneumonia, unspecified organism Stand Alone Forms Stand Alone Forms: Work/School Release Instructions Patient Instructions: DI for Pneumonia -- Adult Print Language Print Language: Luxembourgish Discharge ED Provider: Janeen Devries Adult HPI General Chief complaint: PAIN Stated complaint: R side abd, side pain Time Seen by Provider: 07/07/25 10:06 Mode of Arrival: Ambulatory Source of Information: Patient Description of Symptoms (Recalled from ER Triage Doc. by RN): Patient presents to ED from home with c/o right flank pain x2 days that radiates around to his back. Patient denies n/v/d, denies any urinary symptoms as well. Reports pain worsens with inhalation. History of Present Illness HPI narrative: This a 44-year-old male with reported past medical history of cholecystectomy who presents emergency department with right upper quadrant abdominal pain worsening over the past 3 days. Cholecystectomy was reportedly distant. No recent surgery. Denies any concurrent fever, headache, chest pain, shortness of breath, nausea, vomiting, or diarrhea. Denies any urinary symptoms including dysuria, hematuria, or any history of renal stones. Reports that pain is improved with laying on the affected side. Related Data Home Medications ?Medication ?Instructions ?Recorded ?Confirmed hydrocodone 5 mg-acetaminophen 325 0.5 tab PO 03/20/25 03/20/25 mg tablet Previous Rx's ?Medication ?Instructions ?Recorded melatonin 5 mg tablet See Rx Instructions .Route 0 03/08/24 .COMPLEX #30 ea cholecalciferol (vitamin D3) 1,250 1,250 mcg PO WEEKLY vitamin d 08/02/24 mcg (50,000 unit) capsule deficiency #12 caps fluoxetine 20 mg capsule 20 mg PO DAILY Depression #9 0 caps 08/02/24 atorvastatin 20 mg tablet See Rx Instructions .Route 0 10/21/24 .COMPLEX #90 tabs benzonatate 100 mg capsule 100 mg PO TID PRN cough #30 caps 03/20/25 amoxicillin 875 mg-potassium 1 tab PO BID 7 days #14 t abs 07/07/25 clavulanate 125 mg tablet Allergies Allergy/AdvReac Type Severity Reaction Status Date / Time codeine (CODEINE) AdvReac Mild NA-NAUSEA/V Verified 03/20/25 11:20 OMITING meloxicam (From MOBIC) AdvReac Mild NA-NAUSEA/V Verified 03/20/25 11:20 OMITING PFSH PFSH Disclaimer: The information contained in this section may have been updated after the patient was seen, as this information can be updated by other users. Medical History (Updated 07/07/25 @ 12:31 by Janeen Devries DO) Viral upper respiratory tract infection with cough Depression Surgical History History of repair of rotator cuff History of carpal tunnel release History of tonsillectomy History of cholecystectomy Family History Other No significant family history Social History Smoking Status: Current some day smoker tobacco type: cigarettes packs per day: 1 second hand exposure: No alcohol intake: never substance use type: marijuana current occupational status: other Travel in the last 8 weeks?: None household members: other housing: house number of children: 0 current occupation: [employer] current occupational exposures/hazards: No caffeine: Yes Have you lived/traveled outside [place] in past 30 days?: No Contact w/someone who lives/traveled outside US past 30 days?: No Exposure to someone with infectious disease in past 14 days?: No Do you have a fever (greater than 100.4 F or 38 C)?: No Have you tested positive for COVID-19?: No Exposed to someone with COVID-19 in past 14 days?: No Do you have a sore throat?: No Do you have a cough?: No Do you have any weakness?: No Do you have any diarrhea?: No Are you experiencing any unusual bleeding?: No Do you have any muscle aches/pain?: No Do you have any abdominal pain?: No Are you experiencing loss of taste or smell?: No Other Medical History Have you received the Flu Vaccine for this season: No Have you received the Pneumonia Vaccine: No ROS Obtained: Yes All systems reviewed & no additional complaints except as documented Physical Exam General General appearance: alert and in no apparent distress Head Head exam: atraumatic Eye Eye exam: Present normal appearance, PERRL and EOMI ENT ENT exam: Present mucous membranes moist Neck Neck exam: Present normal inspection and full ROM; Absent tenderness Chest Chest inspection: Present symmetric chest wall rise; Absent tenderness Respiratory Respiratory exam: Absent respiratory distress, wheezes or accessory muscle use Cardiovascular Cardiovascular exam: Present regular rate and normal rhythm Abdominal Exam Abdominal exam: Present soft and tenderness (Tenderness palpation in the right upper quadrant and right flank region); Absent guarding Extremities Exam Extremities exam: Present full ROM; Absent tenderness Neurological Exam Neurological exam: Present alert and oriented X3 Psychiatric Psychiatric exam: Present normal affect Skin Skin exam: Present warm and dry Medical Decision Making Medical Records Screening: Per USPSTF and CDC recommendations, given the prevalence of disease in our region, it is our hospital?s policy to screen for HIV and viral Hepatitis for all patients aged 18 and over and those with ongoing risk factors. Anant Inquiry Pt receiving controlled substance: No Anant was queried for this patient: No Vital Signs: 07/07/25 09:31 07/07/25 12:44 Temperature 98.8 F 98.8 F Temperature Source Oral Oral Pulse Rate 86 Pulse Rate [Left] 89 Respiratory Rate 17 18 Blood Pressure 144/87 H Blood Pressure [Right Arm] 149/95 H Blood Pressure Mean [Right Arm] 113 Blood Pressure Source Automatic Cuff Blood Pressure Source [Right Arm] Automatic Cuff Blood Pressure Position Sitting Blood Pressure Position [Right Arm] Sitting 02 Sat by Pulse Oximetry 97 Oxygen Delivery Method Room Air Room Air Lab Data Lab results reviewed: Yes I reviewed the patient's lab results. Lab Results 07/07/25 09:46: WBC 9.9, RBC 4.74, Hgb 14.3, Hct 42.6, MCV 89.9, MCH 30.2, MCHC 33.6, RDW 12.7, Plt Count 329, MPV 10.6 H, Neut % (Auto) 82.8 H, Lymph % (Auto) 9.4 L, [place] % (Auto) 7.3, Eos % (Auto) 0.0 L, Baso % (Auto) 0.2, Neut # (Auto) 8.2 H, Lymph # (Auto) 0.9, [place] # (Auto) 0.7, Eos # (Auto) 0.0, Baso # (Auto) 0.0, Sodium 138, Potassium 3.6, Chloride 98, Carbon Dioxide 32 H, Anion Gap 11.6, BUN 9, Creatinine 0.70, Estimated Creat Clear 188, Estimated GFR 122, Est GFR ( Amer) 148, Glucose 133 H, Calcium 9.6, Total Bilirubin 0.6, AST 32, ALT 24, Alkaline Phosphatase 91, Total Protein 8.3 H, Albumin 4.5, Globulin 3.8 H, Albumin/Globulin Ratio 1.2, Lipase 146 07/07/25 11:49: Urine Color Yellow, Urine Appearance Clear, Urine pH 6.5, Ur Specific [place] <= 1.005, Urine Protein Trace, Urine Glucose (UA) Negative, Urine Ketones Negative, Urine Blood Trace-i, Urine Nitrate Negative, Urine Bilirubin Negative, Urine Urobilinogen 1.0, Ur Leukocyte Esterase Negative, Urine RBC Occasional, Urine WBC None, Ur Squamous Epith Cells None, Urine Bacteria None 07/07/25 09:46 09/29/25 09:46 Orders (Tests/Meds): ED MEDICATIONS Discontinued Medications Generic Name Dose Route Start Last Admin Trade Name Darling PRN Reason Stop Dose Admin Acetaminophen 1,000 mg 07/07/25 10:13 07/07/25 10:18 Acetaminophen 500mg Tab PO 07/07/25 10:14 1,000 mg ONCE ONE Administration Iopamidol 75 ml 07/07/25 10:36 07/07/25 10:36 Iopamidol-370 (76%);100ml Bottle IV 07/07/25 10:37 75 ml ONCE ONE Administration Ketorolac Tromethamine 15 mg 07/07/25 10:13 07/07/25 10:21 Ketorolac 15mg/Ml Vial IM 07/07/25 10:14 15 mg ONCE ONE Administration Sodium Chloride 10 ml 07/07/25 10:36 07/07/25 10:37 Sodium Chloride 0.9% 10ml Syr (Rad Only) IV 08/06/25 10:35 10 ml NEEDED PRN Administration Maintain IV Site ORDERS Category Date Time Status CT abdomen pelvis w con Stat Cat Scan 07/07/25 10:13 Completed CBC w/Auto Diff [Complete Blood Count Auto Diff] Stat Lab 07/07/25 09:46 Completed CMP [Comprehensive Metabolic Panel] Stat Lab 07/07/25 09:46 Completed Lipase Stat Lab 07/07/25 09:46 Completed UA [Urinalysis and Microscopic] Stat Lab 07/07/25 11:49 Completed Radiology Data #1: Image(s): Abdomen (CT abdomen pelvis with IV contrast) Image Reviewed: Yes I reviewed the patient's radiology results Per radiology: 1. Nodular airspace infiltrates in the right middle lobe and lingula, with atelectasis in the right lung base. Favor that these represent inflammatory etiology, recommend follow-up CT in 4 weeks to reevaluate. 2. Low-attenuation lesion in the posterior right liver, 3 cm in size, indeterminant, may represent a complex cyst versus cystic mass. Recommend ultrasound to better characterize. Medical Decision Narrative: 44-year-old male with reported history of cholecystectomy presenting the emergency department with right upper quadrant abdominal pain worsening over the past 3 days. Differential diagnosis includes but is not limited to: Hepatitis, pancreatitis, biliary obstruction, pyelonephritis, referred pain, right lower lobe pneumonia, constipation On my initial assessment, the patient is hemodynamically stable in no acute distress. His abdominal exam is notable for right upper quadrant and right flank tenderness. Considering the location of his pain and severity of tenderness, we will proceed with CT scan to further evaluate the right upper quadrant. CBC shows no leukocytosis or anemia. Platelet count within normal limits. CMP with no significant electrolyte abnormalities. Normal anion gap. No LEELA. LFTs grossly normal. Normal lipase. UA without acute infectious process. CT of the abdomen and pelvis notable for a likely right lower lobe pneumonia with an incidental right sided hypoattenuating hepatic lesion. Patient will be discharged home with treatment for his pneumonia which will consist of oral Augmentin. I informed him of the incidental hypoattenuating hepatic lesion finding. I recommended he follow-up with his PCP, potentially for an outpatient ultrasound. Critical Care Critical Care Time Critical Care Time: No
[2025-07-07 11:55] LABS: Microscopic, Urine URINE MICROSCOPIC (MICROSCOPIC)
[2025-07-07 12:31] LABS: Bilirubin,Urine Negative (Negative); Color,Urine YELLOW (Yellow); Glucose,Urine (UA) Negative (Negative); Ketones,Urine Negative (Negative); Leukocyte Esterase,Urine Negative (Negative); PH,Urine 6.5 (5.0-8.5); Protein,Urine TRACE (Negative); Specific Gravity, Urine <= 1.005 (1.005-1.030); Urobilinogen,Urine 1.0 EU/dl (0.2)
[2025-07-07 12:44] VITALS: BP 144/87; PULSE 86; RESP 18; TEMP 37.1; O2SAT 98
[2025-07-07 12:59] LABS: RBC,Urine Occasional #/hpf (0-3)
== END 2025-07-07 12:45 | disposition home or self-care (01) ==
PROVIDERS: Emergency Provider Student in an Organized Health Care Education/Training Program; PCP Family Medicine
DX: R10.11 Right upper quadrant pain (principal); J18.9 Pneumonia, unspecified organism; K76.89 Other specified diseases of liver
CPT/HCPCS: 74177; 80053; 81001; 83690; 85025; 96372; 99283; 99284; J1885; Q9967